=== PATIENT | female | born 1990 | race American Indian/Alaskan Native ===

== ENCOUNTER 2021-05-17 11:31 | Inpatient (IN) | payer OTHER, MEDICAID ==
[2021-05-17] MEDS ORDERED: METOCLOPRAMIDE 10 MG/2 ML INJ IV ONE (13:26)
[2021-05-17] MEDS ORDERED: MORPHINE 4 MG/1 ML INJ IV ONE (13:26)
[2021-05-17] MEDS ORDERED: SODIUM CHLORIDE 0.9% 1000 ML 1,000 ML IV ONE (13:26)
[2021-05-17] MEDS ORDERED: diphenhydrAMINE 50 MG/ML VIAL IV ONE (13:26)
[2021-05-17] MEDS ORDERED: FAMOTIDINE 20 MG/2 ML INJ IV ONE (13:26)
--- NOTE | 2021-05-17 13:32 | Emergency Department Report ---
ED General Adult HPI - General Chief complaint: Abdominal Pain Stated complaint: ABDOMINAL PAIN Time Seen by Provider: 05/17/21 13:04 Source: patient Mode of arrival: Ambulatory Limitations: No Limitations - History of Present Illness Initial comments: 30-year-old -[place] female patient presents with complaints of nausea, vomiting, and abdominal pain x5 days. Patient states her nausea and vomiting worsens after eating. She denies any hematemesis/coffee-ground emesis, fever/chills/sweats, chest pain, shortness of breath, cough, melena/manuela tochezia, or diarrhea. No prior history of abdominal surgeries. No known drug allergies per patient. She rates her current pain as a 10/10 in severity. Last menstrual cycle was 05/01/2021. She also denies any hematuria/urinary frequency, vaginal discharge, dysuria, dyspareunia, or vaginal bleeding. - Related Data Allergies Allergy/AdvReac Type Severity Reaction Status Date / Time No Known Allergies Allergy Verified 05/17/21 12:44 ED Review of Systems ROS: Stated complaint: ABDOMINAL PAIN Other details as noted in HPI Constitutional: denies: chills, fever, malaise Respiratory: denies: cough, shortness of breath Cardiovascular: denies: chest pain Gastrointestinal: abdominal pain, nausea, vomiting. denies: diarrhea, constipation, hematemesis, melena, hematochezia Genitourinary: denies: urgency, dysuria, frequency, hematuria, discharge, abnormal menses, dyspareunia Skin: denies: change in color Neurological: denies: headache Hematological/Lymphatic: denies: swollen glands ED Past Medical Hx - Past Medical History Previous Medical History?: No ED Physical Exam - General Limitations: No Limitations General appearance: alert, in no apparent distress - Head Head exam: Present: atraumatic, normocephalic - Eye Eye exam: Present: normal appearance. Absent: scleral icterus - Respiratory Respiratory exam: Present: normal lung sounds bilaterally. Absent: respiratory distress - Cardiovascular Cardiovascular Exam: Present: regular rate, normal rhythm - GI/Abdominal GI/Abdominal exam: Present: soft, tenderness (Periumbilical, epigastric, and right upper quadrant), normal bowel sounds. Absent: distended, guarding, rebound, rigid - Neurological Exam Neurological exam: Present: alert, oriented X3, normal gait - Psychiatric Psychiatric exam: Present: normal affect, normal mood - Skin Skin exam: Present: warm, dry, intact, normal color. Absent: rash ED Course Vital Signs 05/17/21 05/17/21 12:43 13:04 Temperature 98.4 F Pulse Rate 66 Respiratory 16 14 Rate Blood Pressure 117/65 O2 Sat by Pulse 100 Oximetry ED Medical Decision Making - Lab Data Result diagrams: 05/17/21 15:09 05/17/21 15:09 Lab Results 05/17/21 05/17/21 05/17/21 Range/Units 15:09 15:09 15:09 WBC 6.4 (4.5-11.0) K/mm3 RBC 4.87 (3.65-5.03) M/mm3 Hgb 10.6 (10.1-14.3) gm/dl Hct 34.8 (30.3-42.9) % MCV 72 L (79-97) fl MCH 22 L (28-32) pg MCHC 30 (30-34) % RDW 17.2 H (13.2-15.2) % Plt Count 289 (140-440) K/mm3 Lymph % (Auto) 22.2 (13.4-35.0) % [place] % (Auto) 6.5 (0.0-7.3) % Eos % (Auto) 0.3 (0.0-4.3) % Baso % (Auto) 0.5 (0.0-1.8) % Lymph # (Auto) 1.4 (1.2-5.4) K/mm3 [place] # (Auto) 0.4 (0.0-0.8) K/mm3 Eos # (Auto) 0.0 (0.0-0.4) K/mm3 Baso # (Auto) 0.0 (0.0-0.1) K/mm3 Seg Neutrophils % 70.5 H (40.0-70.0) % Seg Neutrophils # 4.5 (1.8-7.7) K/mm3 Sodium 139 (137-145) mmol/L Potassium 3.9 (3.6-5.0) mmol/L Chloride 104.3 (98-107) mmol/L Carbon Dioxide 22 (22-30) mmol/L Anion Gap 17 mmol/L BUN 7 (7-17) mg/dL Creatinine 0.6 (0.6-1.2) mg/dL Estimated GFR > 60 ml/min BUN/Creatinine Ratio 12 % Glucose 95 (65-100) mg/dL Calcium 8.9 (8.4-10.2) mg/dL Total Bilirubin 1.90 H (0.1-1.2) mg/dL AST 77 H (5-40) units/L ALT 129 H (7-56) units/L Alkaline Phosphatase 172 H (35-129) units/L Total Protein 7.1 (6.3-8.2) g/dL Albumin 4.1 (3.9-5) g/dL Albumin/Globulin Ratio 1.4 % Lipase 554 H (13-60) units/L HCG, Qual Negative (Negative) Urine Color (Yellow) Urine Turbidity (Clear) Urine pH (5.0-7.0) Ur Specific [place] (1.003-1.030) Urine Protein (Negative) mg/dL Urine Glucose (UA) (Negative) mg/dL Urine Ketones (Negative) mg/dL Urine Blood (Negative) Urine Nitrite (Negative) Urine Bilirubin (Negative) Urine Urobilinogen (<2.0) mg/dL Ur Leukocyte Esterase (Negative) Urine WBC (Auto) (0.0-6.0) /HPF Urine RBC (Auto) (0.0-6.0) /HPF U Epithel Cells (Auto) (0-13.0) /HPF Urine Bacteria (Auto) (Negative) /HPF Urine Mucus /HPF 05/17/21 Range/Units Unknown WBC (4.5-11.0) K/mm3 RBC (3.65-5.03) M/mm3 Hgb (10.1-14.3) gm/dl Hct (30.3-42.9) % MCV (79-97) fl MCH (28-32) pg MCHC (30-34) % RDW (13.2-15.2) % Plt Count (140-440) K/mm3 Lymph % (Auto) (13.4-35.0) % [place]ama % (Auto) (0.0-7.3) % Eos % (Auto) (0.0-4.3) % Baso % (Auto) (0.0-1.8) % Lymph # (Auto) (1.2-5.4) K/mm3 [place]ama # (Auto) (0.0-0.8) K/mm3 Eos # (Auto) (0.0-0.4) K/mm3 Baso # (Auto) (0.0-0.1) K/mm3 Seg Neutrophils % (40.0-70.0) % Seg Neutrophils # (1.8-7.7) K/mm3 Sodium (137-145) mmol/L Potassium (3.6-5.0) mmol/L Chloride (98-107) mmol/L Carbon Dioxide (22-30) mmol/L Anion Gap mmol/L BUN (7-17) mg/dL Creatinine (0.6-1.2) mg/dL Estimated GFR ml/min BUN/Creatinine Ratio % Glucose (65-100) mg/dL Calcium (8.4-10.2) mg/dL Total Bilirubin (0.1-1.2) mg/dL AST (5-40) units/L ALT (7-56) units/L Alkaline Phosphatase (35-129) units/L Total Protein (6.3-8.2) g/dL Albumin (3.9-5) g/dL Albumin/Globulin Ratio % Lipase (13-60) units/L HCG, Qual (Negative) Urine Color Mandi (Yellow) Urine Turbidity Slightly-cloudy (Clear) Urine pH 5.0 (5.0-7.0) Ur Specific [place] 1.017 (1.003-1.030) Urine Protein <15 mg/dl (Negative) mg/dL Urine Glucose (UA) Neg (Negative) mg/dL Urine Ketones 20 (Negative) mg/dL Urine Blood Neg (Negative) Urine Nitrite Neg (Negative) Urine Bilirubin Neg (Negative) Urine Urobilinogen 4.0 (<2.0) mg/dL Ur Leukocyte Esterase Neg (Negative) Urine WBC (Auto) 1.0 (0.0-6.0) /HPF Urine RBC (Auto) 1.0 (0.0-6.0) /HPF U Epithel Cells (Auto) < 1.0 (0-13.0) /HPF Urine Bacteria (Auto) 1+ (Negative) /HPF Urine Mucus Few /HPF - Radiology Data Radiology results: report reviewed ULTRASOUND ABDOMEN, COMPLETE INDICATION / CLINICAL INFORMATION: pain. COMPARISON: None available. FINDINGS: PANCREAS: No significant abnormality. ABDOMINAL AORTA: No significant abnormality. IVC: No significant abnormality. LIVER: No significant abnormality. GALLBLADDER: Cholelithiasis. BILE DUCTS: No significant abnormality. Common bile duct measures 3 mm. KIDNEYS: Right: No significant abnormality. Left: No significant abnormality. SPLEEN: No significant abnormality. FREE FLUID: None. ADDITIONAL FINDINGS: None. IMPRESSION: 1. Cholelithiasis without evidence of cholecystitis. CT ABDOMEN AND PELVIS WITH IV CONTRAST INDICATION: pain, elevated lipase and liver enzymes. COMPARISON: None available. TECHNIQUE: All CT scans at this facility use dose modulation, automated exposure control, iterative reconstruction or weight based dosing, when appropriate, to reduce radiation dose to as low as reasonably achievable. FINDINGS: Lung Bases: No significant abnormality. Skeletal System: No acute abnormality. ABDOMEN: Liver: No significant abnormality. Gallbladder: Cholelithiasis. Bile Ducts: While there is no biliary dilatation, there appears to be a punctate stone in the common duct (axial image 68, coronal image 44). Adrenals: No significant abnormality. Right Kidney: No significant abnormality. Left Kidney: No significant abnormality. Pancreas: No significant abnormality. Spleen: No significant abnormality. Upper GI tract: No significant abnormality. Lymph Nodes: No significant adenopathy. Aorta: No significant abnormality. Additional Findings: There is mild stranding in the suprapubic anterior lower abdominal wall which may be related to prior surgery. PELVIS: Colon: No acute abnormality. Urinary Bladder and Distal Ureters: No significant abnormality. Appendix: No significant abnormality. Lymph Nodes: No significant adenopathy. Additional Findings: Uterus is somewhat enlarged and lobulated suggestive of multiple uterine fibroids. There is trace free fluid in the pelvis which may be due to ruptured right ovarian cyst. IMPRESSION: 1. There appears to be a punctate stone in the common duct. Cholelithiasis is noted. There is no common duct or intrahepatic bile duct dilatation and I do not see CT evidence of pancreatitis or cholecystitis. 2. Incidental findings, as above. - Medical Decision Making 30-year-old -[place] female patient presents with complaints of nausea, vomiting, and abdominal pain x5 days. Patient states her nausea and vomiting worsens after eating. She denies any hematemesis/coffee-ground emesis, fever/chills/sweats, chest pain, shortness of breath, cough, melena/hematochezia, or diarrhea. No prior history of abdominal surgeries. No known drug allergies per patient. She rates her current pain as a 10/10 in severity. Last menstrual cycle was 05/01/2021. She also denies any hematuria/urinary frequency, vaginal discharge, dysuria, dyspareunia, or vaginal bleeding. White count is normal CBC. LFTs and lipase elevated. Right upper quadrant ultrasound shows cholelithiasis without cholecystitis. CT abdomen shows common bile duct stone without inflammation of the gallbladder or pancreatitis. Discussed patient with Dr. Miller, [facility] who recommends admission to the hospital for observation. Discussed patient with Dr. Shi who will admit to hospital medicine. Discussed findings and care plan with patient who is agreeable Critical care attestation.: If time is entered above; I have spent that time in minutes in the direct care of this critically ill patient, excluding procedure time. ED Disposition Clinical Impression: Choledocholithiasis, Elevated lipase, Abnormal LFTs, Vomiting Disposition: 09 ADMITTED INPATIENT Is pt being admited?: No Condition: Stable Instructions: Abdominal Pain (ED) Referrals: THALIA BROWN MD [Primary Care Provider] - 3-5 Days
[2021-05-17 13:35] LABS: Bacteria,Urine 1+ /HPF (Negative); Bilirubin,Urine NEG (Negative); Blood,Urine NEG (Negative); Color,Urine Amber (Yellow); Mucus,Urine FEW /HPF; Protein,Urine <15 mg/dL mg/dL (Negative)
[2021-05-17 15:28] LABS: Basophils % (Auto) 0.5 % (0.0-1.8); Eosinophils % (Auto) 0.3 % (0.0-4.3); Hemoglobin 10.6 gm/dl (10.1-14.3); Lymphocytes # (Auto) 1.4 K/mm3 (1.2-5.4); Lymphocytes % (Auto) 22.2 % (13.4-35.0); Monocytes # (Auto) 0.4 K/mm3 (0.0-0.8); Monocytes % (Auto) 6.5 % (0.0-7.3)
--- NOTE | 2021-05-17 15:35 | Ultrasound Report ---
ULTRASOUND ABDOMEN, COMPLETE INDICATION / CLINICAL INFORMATION: pain. COMPARISON: None available. FINDINGS: PANCREAS: No significant abnormality. ABDOMINAL AORTA: No significant abnormality. IVC: No significant abnormality. LIVER: No significant abnormality. GALLBLADDER: Cholelithiasis. BILE DUCTS: No significant abnormality. Common bile duct measures 3 mm. KIDNEYS: Right: No significant abnormality. Left: No significant abnormality. SPLEEN: No significant abnormality. FREE FLUID: None. ADDITIONAL FINDINGS: None. IMPRESSION: 1. Cholelithiasis without evidence of cholecystitis. Signer Name: Scotty Browning DO Signed: 05/17/2021 3:30 PM Workstation Name: [id number]
[2021-05-17 15:37] LABS: Hematocrit 34.8 % (30.3-42.9); Mean Corpuscular HGB Conc 30 % (30-34); Mean Corpuscular Volume 72 fl (79-97); Platelet Count 289 K/mm3 (140-440); Red Blood Count 4.87 M/mm3 (3.65-5.03); Red Cell Distribution Width 17.2 % (13.2-15.2)
[2021-05-17 15:51] LABS: Alanine Aminotransferase 129 units/L (7-56); Albumin 4.1 g/dL (3.9-5); Blood Urea Nitrogen 7 mg/dL (7-17); Calcium 8.9 mg/dL (8.4-10.2); Hemolysis Index 1
[2021-05-17 15:52] LABS: BUN/Creatinine Ratio 12
[2021-05-17] MEDS ORDERED: KETOROLAC 30 MG/1 ML INJ IV ONE (16:21)
--- NOTE | 2021-05-17 17:55 | Cat Scan Report ---
CT ABDOMEN AND PELVIS WITH IV CONTRAST INDICATION: pain, elevated lipase and liver enzymes. COMPARISON: None available. TECHNIQUE: All CT scans at this facility use dose modulation, automated exposure control, iterative reconstructi on or weight based dosing, when appropriate, to reduce radiation dose to as low as reasonably achieva ble. FINDINGS: Lung Bases: No significant abnormality. Skeletal System: No acute abnormality. ABDOMEN: Liver: No significant abnormality. Gallbladder: Cholelithiasis. Bile Ducts: While there is no biliary dilatation, there appears to be a punctate stone in the common duct (axial image 68, coronal image 44). Adrenals: No significant abnormality. Right Kidney: No significant abnormality. Left Kidney: No significant abnormality. Pancreas: No significant abnormality. Spleen: No significant abnormality. Upper GI tract: No significant abnormality. Lymph Nodes: No significant adenopathy. Aorta: No significant abnormality. Additional Findings: There is mild stranding in the suprapubic anterior lower abdominal wall which ma y be related to prior surgery. PELVIS: Colon: No acute abnormality. Urinary Bladder and Distal Ureters: No significant abnormality. Appendix: No significant abnormality. Lymph Nodes: No significant adenopathy. Additional Findings: Uterus is somewhat enlarged and lobulated suggestive of multiple uterine fibroid s. There is trace free fluid in the pelvis which may be due to ruptured right ovarian cyst. IMPRESSION: 1. There appears to be a punctate stone in the common duct. Cholelithiasis is noted. There is no com mon duct or intrahepatic bile duct dilatation and I do not see CT evidence of pancreatitis or cholecy stitis. 2. Incidental findings, as above. Signer Name: León Barnes MD Signed: 05/17/2021 5:51 PM Workstation Name: [id number]
[2021-05-17] MEDS ORDERED: MORPHINE 4 MG/1 ML INJ IV PRN (18:58)
[2021-05-17] MEDS ORDERED: ONDANSETRON 4 MG/2 ML INJ IV PRN (18:59)
--- NOTE | 2021-05-17 19:12 | History and Physical Report ---
History of Present Illness Date of examination: 05/17/21 Date of admission: 05/17/2021 Chief complaint: Abdominal pain associated with nausea and vomiting for 5 days History of present illness: 30-year-old -[place] female with no significant past medical history comes in for nausea vomiting and right upper quadrant pain for 5 days. Nausea worsens after eating. Denies any hematemesis or diarrhea. No chest pain. No shortness of breath. Pain is about 10 on a scale of 1-10. Intermittent in nature. No fever or chills. No exposure to Covid virus. Review of Systems ROS: Stated complaint: ABDOMINAL PAIN Other details as noted in HPI Constitutional: denies: chills, fever, malaise Respiratory: denies: cough, shortness of breath Cardiovascular: denies: chest pain Gastrointestinal: abdominal pain, nausea, vomiting. denies: diarrhea, constipation, hematemesis, melena, hematochezia Genitourinary: denies: urgency, dysuria, frequency, hematuria, discharge, abnormal menses, dyspareunia Skin: denies: change in color Neurological: denies: headache Hematological/Lymphatic: denies: swollen glands Past History Past Medical History: No medical history Past Surgical History: No surgical history Social history: lives with family, full code Family history: no significant family history Medications and Allergies Allergies Allergy/AdvReac Type Severity Reaction Status Date / Time No Known Allergies Allergy Verified 05/17/21 12:44 Home Medications Medication Instructions Recorded Confirmed Last Taken Type No Known Home Medications [No 05/17/21 05/17/21 Unknown History Reported Home Medications] Active Meds: Active Medications Morphine Sulfate (Morphine 4 Mg/1 Ml Inj) 4 mg IV Q4H PRN PRN Reason: Pain , Severe (7-10) Ondansetron HCl (Ondansetron 4 Mg/2 Ml Inj) 4 mg IV Q6H PRN PRN Reason: Nausea Exam - Constitutional Vitals: Temp Pulse Resp BP Pulse Ox 98.4 F 66 16 116/75 99 05/17/21 19:10 05/17/21 19:10 05/17/21 19:10 05/17/21 19:10 05/17/21 19:11 General appearance: Present: no acute distress, well-nourished - EENT Eyes: Present: PERRL ENT: hearing intact, clear oral mucosa - Neck Neck: Present: supple, normal ROM - Respiratory Respiratory effort: normal Respiratory: bilateral: CTA - Cardiovascular Heart rate: 78 Rhythm: regular Heart Sounds: Present: S1 & S2. Absent: rub, click - Extremities Extremities: pulses symmetrical, No edema Peripheral Pulses: within normal limits - Abdominal General gastrointestinal: Present: soft, tender, non-distended, normal bowel sounds Localized gastrointestinal: tender: RLQ, guarding: RLQ Female genitourinary: Present: normal - Integumentary Integumentary: Present: clear, warm, dry - Musculoskeletal Musculoskeletal: gait normal, strength equal bilaterally - Psychiatric Psychiatric: appropriate mood/affect, intact judgment & insight - Neurologic Neurologic: CNII-XII intact, moves all extremities - Allied Health Allied health notes reviewed: nursing, case management Results - Labs CBC & Chem 7: 05/18/21 03:37 05/18/21 03:37 Labs: Laboratory Last Values WBC 6.4 K/mm3 (4.5-11.0) 05/17/21 15:09 RBC 4.87 M/mm3 (3.65-5.03) 05/17/21 15:09 Hgb 10.6 gm/dl (10.1-14.3) 05/17/21 15:09 Hct 34.8 % (30.3-42.9) 05/17/21 15:09 MCV 72 fl (79-97) L 05/17/21 15:09 MCH 22 pg (28-32) L 05/17/21 15:09 MCHC 30 % (30-34) 05/17/21 15:09 RDW 17.2 % (13.2-15.2) H 05/17/21 15:09 Plt Count 289 K/mm3 (140-440) 05/17/21 15:09 Lymph % (Auto) 22.2 % (13.4-35.0) 05/17/21 15:09 [place] % (Auto) 6.5 % (0.0-7.3) 05/17/21 15:09 Eos % (Auto) 0.3 % (0.0-4.3) 05/17/21 15:09 Baso % (Auto) 0.5 % (0.0-1.8) 05/17/21 15:09 Lymph # (Auto) 1.4 K/mm3 (1.2-5.4) 05/17/21 15:09 [place] # (Auto) 0.4 K/mm3 (0.0-0.8) 05/17/21 15:09 Eos # (Auto) 0.0 K/mm3 (0.0-0.4) 05/17/21 15:09 Baso # (Auto) 0.0 K/mm3 (0.0-0.1) 05/17/21 15:09 Seg Neutrophils % 70.5 % (40.0-70.0) H 05/17/21 15:09 Seg Neutrophils # 4.5 K/mm3 (1.8-7.7) 05/17/21 15:09 Sodium 139 mmol/L (137-145) 05/17/21 15:09 Potassium 3.9 mmol/L (3.6-5.0) 05/17/21 15:09 Chloride 104.3 mmol/L (98-107) 05/17/21 15:09 Carbon Dioxide 22 mmol/L (22-30) 05/17/21 15:09 Anion Gap 17 mmol/L 05/17/21 15:09 BUN 7 mg/dL (7-17) 05/17/21 15:09 Creatinine 0.6 mg/dL (0.6-1.2) 05/17/21 15:09 Estimated GFR > 60 ml/min 05/17/21 15:09 BUN/Creatinine Ratio 12 % 05/17/21 15:09 Glucose 95 mg/dL (65-100) 05/17/21 15:09 Calcium 8.9 mg/dL (8.4-10.2) 05/17/21 15:09 Total Bilirubin 1.90 mg/dL (0.1-1.2) H 05/17/21 15:09 AST 77 units/L (5-40) H 05/17/21 15:09 ALT 129 units/L (7-56) H 05/17/21 15:09 Alkaline Phosphatase 172 units/L (35-129) H 05/17/21 15:09 Total Protein 7.1 g/dL (6.3-8.2) 05/17/21 15:09 Albumin 4.1 g/dL (3.9-5) 05/17/21 15:09 Albumin/Globulin Ratio 1.4 % 05/17/21 15:09 Lipase 554 units/L (13-60) H 05/17/21 15:09 HCG, Qual Negative (Negative) 05/17/21 15:09 Urine Color Mandi (Yellow) 05/17/21 Unknown Urine Turbidity Slightly-cloudy (Clear) 05/17/21 Unknown Urine pH 5.0 (5.0-7.0) 05/17/21 Unknown Ur Specific [place] 1.017 (1.003-1.030) 05/17/21 Unknown Urine Protein <15 mg/dl mg/dL (Negative) 05/17/21 Unknown Urine Glucose (UA) Neg mg/dL (Negative) 05/17/21 Unknown Urine Ketones 20 mg/dL (Negative) 05/17/21 Unknown Urine Blood Neg (Negative) 05/17/21 Unknown Urine Nitrite Neg (Negative) 05/17/21 Unknown Urine Bilirubin Neg (Negative) 05/17/21 Unknown Urine Urobilinogen 4.0 mg/dL (<2.0) 05/17/21 Unknown Ur Leukocyte Esterase Neg (Negative) 05/17/21 Unknown Urine WBC (Auto) 1.0 /HPF (0.0-6.0) 05/17/21 Unknown Urine RBC (Auto) 1.0 /HPF (0.0-6.0) 05/17/21 Unknown U Epithel Cells (Auto) < 1.0 /HPF (0-13.0) 05/17/21 Unknown Urine Bacteria (Auto) 1+ /HPF (Negative) 05/17/21 Unknown Urine Mucus Few /HPF 05/17/21 Unknown Short CBC 05/17/21 05/18/21 Range/Units 15:09 03:37 WBC 6.4 5.9 (4.5-11.0) K/mm3 Hgb 10.6 10.6 (10.1-14.3) gm/dl Hct 34.8 34.7 (30.3-42.9) % Plt Count 289 303 (140-440) K/mm3 BMP 05/17/21 05/18/21 15:09 03:37 Sodium 139 141 Potassium 3.9 3.7 Chloride 104.3 105.5 Carbon Dioxide 22 19 L BUN 7 9 Creatinine 0.6 0.7 Glucose 95 86 Calcium 8.9 9.2 Liver Function 05/17/21 05/18/21 Range/Units 15:09 03:37 Total Bilirubin 1.90 H 2.20 H (0.1-1.2) mg/dL AST 77 H 75 H (5-40) units/L ALT 129 H 122 H (7-56) units/L Alkaline Phosphatase 172 H 195 H (35-129) units/L Albumin 4.1 4.1 (3.9-5) g/dL Urine 05/17/21 Range/Units Unknown Urine Color Mandi (Yellow) Urine pH 5.0 (5.0-7.0) Ur Specific [place] 1.017 (1.003-1.030) Urine Protein <15 mg/dl (Negative) mg/dL Urine Glucose (UA) Neg (Negative) mg/dL - Imaging and Cardiology Imaging and Cardiology: Abdominal ultrasound Cholelithiasis without evidence of cholecystitis Abdomen/pelvis CT There appears to be a punctate stone in the common bile duct. Cholelithiasis is noted. There is no common duct or intrahepatic bile duct dilatation and no evidence of pancreatitis or cholecystitis. Incidental findings as above. Assessment and Plan Advance Directives: Yes (Full code) VTE prophylaxis?: Chemical, Mechanical Plan of care discussed with patient/family: Yes - Patient Problems (1) Choledocholithiasis Current Visit: Yes Status: Acute Plan to address problem: Elevated LFTs and elevated lipase suggests choledocholithiasis and possible common bile duct obstruction Surgery and GI consulted MRCP requested for a.m. Pain control in the meantime IV antibiotics (2) Transaminitis Current Visit: Yes Status: Acute Plan to address problem: Secondary to cholelithiasis and CBD stone (3) Elevated lipase Current Visit: Yes Status: Acute Plan to address problem: No evidence of pancreatitis on the CAT scan Keep patient n.p.o. (4) DVT prophylaxis Current Visit: Yes Status: Acute Plan to address problem: On SCDs and GI prophylaxis (5) Advance care planning Current Visit: Yes Status: Acute Plan to address problem: Disease education conducted, care plan discussed, diagnosis disc, prognosis discussed. Patient is full code. Patient acknowledged understanding and agreement with care plan. +30 minutes.
[2021-05-17] MEDS ORDERED: ACETAMINOPHEN 325 MG TAB PO PRN (19:14)
--- NOTE | 2021-05-17 20:26 | Gastroenterology Consultation ---
History of Present Illness - Reason for Consult Consult date: 05/17/21 cbd stone Requesting physician: KRYSTA BULLOCK - History of Present Illness This is a 30 yo female presenting to the ED for 5 day h/o upper abdominal pain and nausea/vomiting. Denies any fever/chills, bleeding symptom. Reports pain has been on-going since Friday and not improved much. Radiating to the back and her sides. No prior h/o pancreatitis, GI bleed, or abdominal surgeries. No recent alcohol use. Medication list reviewed. Medications and Allergies Allergies Allergy/AdvReac Type Severity Reaction Status Date / Time No Known Allergies Allergy Verified 05/17/21 12:44 Home Medications Medication Instructions Recorded Confirmed Last Taken Type No Known Home Medications [No 05/17/21 05/17/21 Unknown History Reported Home Medications] Active Meds: Active Medications Acetaminophen (Acetaminophen 325 Mg Tab) 650 mg PO Q4H PRN PRN Reason: Pain MILD(1-3)/Fever >100.5/ALMEIDA Famotidine (Famotidine 20 Mg/2 Ml Inj) 20 mg IV BID MOHSEN Hydromorphone HCl (Hydromorphone 1 Mg/1 Ml Inj) 0.5 mg IV Q3H PRN PRN Reason: Pain , Severe (7-10) Dextrose/Sodium Chloride (D5ns) 1,000 mls @ 75 mls/hr IV DIRECT MOHSEN Piperacillin Sod/Tazobactam Sod (Zosyn/Ns 4.5gm/100ml) 4.5 gm in 100 mls @ 200 mls/hr IV Q8H MOHSEN; Protocol Metoclopramide HCl (Metoclopramide 10 Mg/2 Ml Inj) 10 mg IV Q6H PRN PRN Reason: Nausea And Vomiting Morphine Sulfate (Morphine 2 Mg/1 Ml Inj) 2 mg IV Q4H PRN PRN Reason: Pain, Moderate (4-6) Ondansetron HCl (Ondansetron 4 Mg/2 Ml Inj) 4 mg IV Q3H PRN PRN Reason: Nausea And Vomiting Sodium Chloride (Sodium Chloride 0.9% 10 Ml Flush Syringe) 10 ml IV BID MOHSEN Sodium Chloride (Sodium Chloride 0.9% 10 Ml Flush Syringe) 10 ml IV PRN PRN PRN Reason: LINE FLUSH Review of Systems - Review of Systems All systems: negative Constitutional: no weight loss, no weight gain, no fever Eyes: no change in vision Ears, Nose, Throat: no decreased hearing, no difficulty swallowing Cardiovascular: no chest pain, no edema Gastrointestinal: abdominal pain, nausea, vomiting, no diarrhea, no constipation, no change in bowel habits, no BRBPR, no melena, no hematochezia Rectal: no pain Musculoskeletal: no gait dysfunction Integumentary: no rash Neurological: no paralysis, no weakness Psychiatric: no anxiety Endocrine: no cold intolerance Hematologic/Lymphatic: no easy bruising Allergic/Immunologic: no wheezing Exam - Constitutional Vital Signs: Temp Pulse Resp BP Pulse Ox 98.4 F 66 16 116/75 99 05/17/21 19:10 05/17/21 19:10 05/17/21 19:10 05/17/21 19:10 05/17/21 19:11 General appearance: no acute distress - EENT Eyes: EOM intact ENT: hearing intact - Neck Neck: supple - Respiratory Respiratory effort: normal - Cardiovascular Rhythm: regular Heart Sounds: Present: S1 & S2 Extremities: No edema - Gastrointestinal General gastrointestinal: Present: soft, tender, non-distended, normal bowel sounds - Integumentary Integumentary: Present: clear, warm - Musculoskeletal Musculoskeletal: normal - Neurologic Neurological: alert and oriented x3 - Psychiatric Psychiatric: appropriate mood/affect - Labs CBC & Chem 7: 05/17/21 15:09 05/17/21 15:09 Lab Results: Laboratory Results - last 24 hr 05/17/21 05/17/21 05/17/21 15:09 15:09 15:09 WBC 6.4 RBC 4.87 Hgb 10.6 Hct 34.8 MCV 72 L MCH 22 L MCHC 30 RDW 17.2 H Plt Count 289 Lymph % (Auto) 22.2 [place] % (Auto) 6.5 Eos % (Auto) 0.3 Baso % (Auto) 0.5 Lymph # (Auto) 1.4 [place] # (Auto) 0.4 Eos # (Auto) 0.0 Baso # (Auto) 0.0 Seg Neutrophils % 70.5 H Seg Neutrophils # 4.5 Sodium 139 Potassium 3.9 Chloride 104.3 Carbon Dioxide 22 Anion Gap 17 BUN 7 Creatinine 0.6 Estimated GFR > 60 BUN/Creatinine Ratio 12 Glucose 95 Calcium 8.9 Total Bilirubin 1.90 H AST 77 H ALT 129 H Alkaline Phosphatase 172 H Total Protein 7.1 Albumin 4.1 Albumin/Globulin Ratio 1.4 Lipase 554 H HCG, Qual Negative Urine Color Urine Turbidity Urine pH Ur Specific [place] Urine Protein Urine Glucose (UA) Urine Ketones Urine Blood Urine Nitrite Urine Bilirubin Urine Urobilinogen Ur Leukocyte Esterase Urine WBC (Auto) Urine RBC (Auto) U Epithel Cells (Auto) Urine Bacteria (Auto) Urine Mucus 05/17/21 Unknown WBC RBC Hgb Hct MCV MCH MCHC RDW Plt Count Lymph % (Auto) [place] % (Auto) Eos % (Auto) Baso % (Auto) Lymph # (Auto) [place] # (Auto) Eos # (Auto) Baso # (Auto) Seg Neutrophils % Seg Neutrophils # Sodium Potassium Chloride Carbon Dioxide Anion Gap BUN Creatinine Estimated GFR BUN/Creatinine Ratio Glucose Calcium Total Bilirubin AST ALT Alkaline Phosphatase Total Protein Albumin Albumin/Globulin Ratio Lipase HCG, Qual Urine Color Mandi Urine Turbidity Slightly-cloudy Urine pH 5.0 Ur Specific [place] 1.017 Urine Protein <15 mg/dl Urine Glucose (UA) Neg Urine Ketones 20 Urine Blood Neg Urine Nitrite Neg Urine Bilirubin Neg Urine Urobilinogen 4.0 Ur Leukocyte Esterase Neg Urine WBC (Auto) 1.0 Urine RBC (Auto) 1.0 U Epithel Cells (Auto) < 1.0 Urine Bacteria (Auto) 1+ Urine Mucus Few - Imaging CT Scan: report reviewed Ultrasound: report reviewed Assessment and Plan # Abdominal pain/nausea/vomiting # Elevated LFTs - CT showing suspected stone in the common bile duct although no biliary ductal dilation. No signs of pancreatitis. - although CT is negative for pancreatitis, she fits other criteria with elevated lipase and pain. Rec - monitor LFTs - check INR - MRCP pending - will decide on ERCP based on MRCP results. - recommend surgery consult for CCY evaluation. - keep NPO - IVF. - pain control. - Patient Problems (1) Abnormal LFTs Current Visit: Yes Status: Acute (2) Choledocholithiasis Current Visit: Yes Status: Acute (3) Elevated lipase Current Visit: Yes Status: Acute
[2021-05-17] MEDS: FAMOTIDINE 20 MG/2 ML INJ IV SCH (21:36)
[2021-05-17] MEDS: PIPERACIL/TAZOBACTA 4.5/NS 100 4.5 GM/100 ML VIAL IV SCH (21:37)
[2021-05-18] MEDS: MORPHINE 2 MG/1 ML INJ IV PRN ×2 (02:47→10:17)
[2021-05-18] MEDS: D5W/0.9% NACL 1,000 ML IV SCH ×2 (03:01→22:47)
[2021-05-18 04:30] LABS: Basophils % (Auto) 0.6 % (0.0-1.8); Eosinophils % (Auto) 0.5 % (0.0-4.3); Hematocrit 34.7 % (30.3-42.9); Hemoglobin 10.6 gm/dl (10.1-14.3); Lymphocytes # (Auto) 1.8 K/mm3 (1.2-5.4); Mean Corpuscular HGB Conc 31 % (30-34); Mean Corpuscular Volume 71 fl (79-97); Monocytes # (Auto) 0.4 K/mm3 (0.0-0.8); Monocytes % (Auto) 6.5 % (0.0-7.3); Platelet Count 303 K/mm3 (140-440); Red Blood Count 4.88 M/mm3 (3.65-5.03); Red Cell Distribution Width 17.6 % (13.2-15.2)
[2021-05-18 04:37] LABS: Alanine Aminotransferase 122 units/L (7-56); Albumin 4.1 g/dL (3.9-5); Blood Urea Nitrogen 9 mg/dL (7-17); Calcium 9.2 mg/dL (8.4-10.2); Hemolysis Index 0
[2021-05-18 04:39] LABS: BUN/Creatinine Ratio 13
[2021-05-18] MEDS: PIPERACIL/TAZOBACTA 4.5/NS 100 4.5 GM/100 ML VIAL IV SCH (05:43)
--- NOTE | 2021-05-18 08:57 | Progress Note ---
Assessment and Plan Assessment and plan: 30-year-old female patient with no significant past medical history was admitted with acute nausea vomiting initial work-up is consistent with choledocholithiasis and mild acute pancreatitis, acute transaminitis, GI evaluated the patient, pending MRCP --Choledocholithiasis Current Visit: Yes Status: Acute Plan to address problem: Elevated LFTs and elevated lipase suggests choledocholithiasis and possible co mmon bile duct obstruction GI evaluation noted and appreciated Pending MRCP this a.m. Pain management, n.p.o. status IV antibiotics Abdominal ultrasound :cholelithiasis without evidence of cholecystitis CT abdomen and pelvis; punctate stone in the common bile duct, cholelithiasis there is no common duct or intrahepatic bile duct dilatation do not see CT evidence of pancreatitis or cholecystitis --Acute transaminitis Current Visit: Yes Status: Acute Secondary to cholelithiasis and CBD stone Closely monitor, GI following LFTs trending down, follow hours --Elevated lipase/acute pancreatitis Current Visit: Yes Status: Acute No evidence of pancreatitis on the CAT scan Keep patient n.p.o. --DVT prophylaxis Current Visit: Yes Status: Acute On SCDs and GI prophylaxis -- Advance care planning Current Visit: Yes Status: Acute Disease education conducted, care plan discussed, diagnosis disc, prognosis discussed. Patient is full code. Patient verbalized understanding and agreement with care plan. +30 minutes. Follow MRCP , and ERCP follow consultants evaluation and recommendations Closely monitor the patient and adjust management as needed Closely monitor patient and adjust management as needed Plan of care reviewed with the patient and her nurse History Interval history: I seen and examined the patient at the bedside Patient's chart and medications reviewed Patient had MRCP done findings reviewed Scheduled for ERCP today Patient has no new complaints Hospitalist Physical - Constitutional Vitals: Temp Pulse Resp BP Pulse Ox 98.2 F 60 18 121/63 95 05/18/21 02:38 05/18/21 02:38 05/18/21 02:38 05/18/21 02:38 05/18/21 07:37 General appearance: Present: no acute distress, well-nourished - EENT Eyes: Present: PERRL, EOM intact - Neck Neck: Present: supple, normal ROM - Respiratory Respiratory effort: normal Respiratory: bilateral: diminished, negative: rales, rhonchi, wheezing - Cardiovascular Rhythm: regular Heart Sounds: Present: S1 & S2 - Extremities Extremities: no ischemia, No edema - Abdominal General gastrointestinal: soft, non-tender, non-distended, normal bowel sounds - Integumentary Integumentary: Present: clear, warm - Psychiatric Psychiatric: appropriate mood/affect, cooperative - Neurologic Neurologic: CNII-XII intact, moves all extremities Results - Labs CBC & Chem 7: 05/18/21 03:37 05/18/21 03:37 Labs: Laboratory Last Values WBC 5.9 K/mm3 (4.5-11.0) 05/18/21 03:37 RBC 4.88 M/mm3 (3.65-5.03) 05/18/21 03:37 Hgb 10.6 gm/dl (10.1-14.3) 05/18/21 03:37 Hct 34.7 % (30.3-42.9) 05/18/21 03:37 MCV 71 fl (79-97) L 05/18/21 03:37 MCH 22 pg (28-32) L 05/18/21 03:37 MCHC 31 % (30-34) 05/18/21 03:37 RDW 17.6 % (13.2-15.2) H 05/18/21 03:37 Plt Count 303 K/mm3 (140-440) 05/18/21 03:37 Lymph % (Auto) 30.0 % (13.4-35.0) 05/18/21 03:37 [place] % (Auto) 6.5 % (0.0-7.3) 05/18/21 03:37 Eos % (Auto) 0.5 % (0.0-4.3) 05/18/21 03:37 Baso % (Auto) 0.6 % (0.0-1.8) 05/18/21 03:37 Lymph # (Auto) 1.8 K/mm3 (1.2-5.4) 05/18/21 03:37 [place] # (Auto) 0.4 K/mm3 (0.0-0.8) 05/18/21 03:37 Eos # (Auto) 0.0 K/mm3 (0.0-0.4) 05/18/21 03:37 Baso # (Auto) 0.0 K/mm3 (0.0-0.1) 05/18/21 03:37 Seg Neutrophils % 62.4 % (40.0-70.0) 05/18/21 03:37 Seg Neutrophils # 3.7 K/mm3 (1.8-7.7) 05/18/21 03:37 Sodium 141 mmol/L (137-145) 05/18/21 03:37 Potassium 3.7 mmol/L (3.6-5.0) 05/18/21 03:37 Chloride 105.5 mmol/L (98-107) 05/18/21 03:37 Carbon Dioxide 19 mmol/L (22-30) L 05/18/21 03:37 Anion Gap 20 mmol/L 05/18/21 03:37 BUN 9 mg/dL (7-17) 05/18/21 03:37 Creatinine 0.7 mg/dL (0.6-1.2) 05/18/21 03:37 Estimated GFR > 60 ml/min 05/18/21 03:37 BUN/Creatinine Ratio 13 % 05/18/21 03:37 Glucose 86 mg/dL (65-100) 05/18/21 03:37 Calcium 9.2 mg/dL (8.4-10.2) 05/18/21 03:37 Total Bilirubin 2.20 mg/dL (0.1-1.2) H 05/18/21 03:37 AST 75 units/L (5-40) H 05/18/21 03:37 ALT 122 units/L (7-56) H 05/18/21 03:37 Alkaline Phosphatase 195 units/L (35-129) H 05/18/21 03:37 Total Protein 7.4 g/dL (6.3-8.2) 05/18/21 03:37 Albumin 4.1 g/dL (3.9-5) 05/18/21 03:37 Albumin/Globulin Ratio 1.2 % 05/18/21 03:37 Lipase 554 units/L (13-60) H 05/17/21 15:09 HCG, Qual Negative (Negative) 05/17/21 15:09 Urine Color Mandi (Yellow) 05/17/21 Unknown Urine Turbidity Slightly-cloudy (Clear) 05/17/21 Unknown Urine pH 5.0 (5.0-7.0) 05/17/21 Unknown Ur Specific [place] 1.017 (1.003-1.030) 05/17/21 Unknown Urine Protein <15 mg/dl mg/dL (Negative) 05/17/21 Unknown Urine Glucose (UA) Neg mg/dL (Negative) 05/17/21 Unknown Urine Ketones 20 mg/dL (Negative) 05/17/21 Unknown Urine Blood Neg (Negative) 05/17/21 Unknown Urine Nitrite Neg (Negative) 05/17/21 Unknown Urine Bilirubin Neg (Negative) 05/17/21 Unknown Urine Urobilinogen 4.0 mg/dL (<2.0) 05/17/21 Unknown Ur Leukocyte Esterase Neg (Negative) 05/17/21 Unknown Urine WBC (Auto) 1.0 /HPF (0.0-6.0) 05/17/21 Unknown Urine RBC (Auto) 1.0 /HPF (0.0-6.0) 05/17/21 Unknown U Epithel Cells (Auto) < 1.0 /HPF (0-13.0) 05/17/21 Unknown Urine Bacteria (Auto) 1+ /HPF (Negative) 05/17/21 Unknown Urine Mucus Few /HPF 05/17/21 Unknown Active Medications - Current Medications Current Medications: Generic Name Dose Route Start Last Admin Trade Name Freq PRN Reason Stop Dose Admin Acetaminophen 650 mg 05/17/21 19:14 Acetaminophen 325 Mg Tab PO Q4H PRN Pain MILD(1-3)/Fever >100.5/ALMEIDA Famotidine 20 mg 05/17/21 22:00 05/17/21 21:36 Famotidine 20 Mg/2 Ml Inj IV 20 mg BID MOHSEN Administration Hydromorphone HCl 0.5 mg 05/17/21 19:14 Hydromorphone 1 Mg/1 Ml Inj IV Q3H PRN Pain , Severe (7-10) Dextrose/Sodium Chloride 1,000 mls @ 75 mls/hr 05/17/21 20:00 05/18/21 03:01 D5ns IV 75 mls/hr DIRECT MOHSEN Administration Piperacillin Sod/Tazobactam Sod 4.5 gm in 100 mls @ 200 mls/hr 05/17/21 22:00 05/18/21 05:43 Zosyn/Ns 4.5gm/100ml IV 200 mls/hr Q8H MOHSEN Administration Protocol Metoclopramide HCl 10 mg 05/17/21 19:14 Metoclopramide 10 Mg/2 Ml Inj IV Q6H PRN Nausea And Vomiting Morphine Sulfate 2 mg 05/17/21 19:14 05/18/21 02:47 Morphine 2 Mg/1 Ml Inj IV 2 mg Q4H PRN Administration Pain, Moderate (4-6) Ondansetron HCl 4 mg 05/17/21 19:14 Ondansetron 4 Mg/2 Ml Inj IV Q3H PRN Nausea And Vomiting Sodium Chloride 10 ml 05/17/21 22:00 05/17/21 21:37 Sodium Chloride 0.9% 10 Ml Flush Syringe IV 10 ml BID MOHSEN Administration Sodium Chloride 10 ml 05/17/21 19:14 Sodium Chloride 0.9% 10 Ml Flush Syringe IV PRN PRN LINE FLUSH
--- NOTE | 2021-05-18 09:37 | Magnetic Resonance Report ---
MR ABDOMEN MRCP HISTORY: Cholelithiasis, choledocholithiasis, abdominal pain TECHNIQUE: Multisequence, multiplane are MRI without contrast. Thin collimation coronal MRCP images. Radial MRCP images. COMPARISON: CT abdomen pelvis with contrast performed 05/17/2021. FINDINGS: The MRCP images demonstrate multiple small and large stones in the gallbladder. Gallstones measure up to 2 cm in diameter. The images also demonstrate a small filling defect in the distal common bile du ct measuring approximately 4 mm consistent with an obstructing stone tone. There is mild intrahepatic and extrahepatic biliary dilatation with the common bile duct measuring up to 9 mm in diameter. The pancreatic duct is unremarkable. MR imaging of the liver, pancreas, spleen, kidneys, adrenal glands, visualized bowel loops and vascul ar structures are unremarkable. No evidence for ascites, fluid collection or acute inflammation. Normal bone marrow signal in the visualized osseous structures. IMPRESSION: Cholelithiasis and obstructing choledocholithiasis as described. Signer Name: Shakeel Fuentes Jr, MD Signed: 05/18/2021 9:33 AM Workstation Name: [id number]
[2021-05-18] MEDS: METOCLOPRAMIDE 10 MG/2 ML INJ IV PRN (10:17)
[2021-05-18] MEDS: FAMOTIDINE 20 MG/2 ML INJ IV SCH ×2 (10:17→22:25)
[2021-05-18] MEDS ORDERED: WATER FOR IRRIG STERILE 250 ML BOTTLE IR ONE (13:20)
[2021-05-18] MEDS ORDERED: GLUCAGON (HUMAN RECOMBINANT) 1 MG/ML INJ ONE (13:20)
[2021-05-18] MEDS ORDERED: SODIUM CHLORIDE 0.9% 1000 ML 1,000 ML ONE (13:20)
[2021-05-18] MEDS ORDERED: WATER FOR IRRIG STERILE 1,000 ML BOTTLE ONE (13:20)
[2021-05-18] MEDS ORDERED: SODIUM CHLORIDE 0.9% 100 ML ONE (13:20)
[2021-05-18] MEDS ORDERED: LIDOCAINE MPF (2%) 20 MG/1 ML VIAL 5 ML ONE (14:11)
[2021-05-18] MEDS ORDERED: propofoL 200 MG/20 ML VIAL IV ONE ×2 (14:12→14:36)
[2021-05-18] MEDS ORDERED: fentaNYL 100 MCG/2 ML INJ ONE (14:12)
[2021-05-18] MEDS ORDERED: MIDAZOLAM 2 MG/2 ML INJ ONE (14:12)
--- NOTE | 2021-05-18 14:21 | Anesthesia Consultation ---
Anesthesia Consult and Med Hx Date of service: 05/18/21 - Airway Anesthetic Teeth Evaluation: Good ROM Head & Neck: Adequate Mental/Hyoid Distance: Adequate Mallampati Class: Class II Intubation Access Assessment: Probably Good - Pulmonary Exam CTA: Yes - Cardiac Exam Cardiac Exam: RRR - Pre-Operative Health Status ASA Pre-Surgery Classification: ASA2 Proposed Anesthetic Plan: MAC - Pulmonary Hx Asthma: No COPD: No Hx Pneumonia: No - Gastrointestinal Hx Gastroesophageal Reflux Disease: Yes (controlled) - Endocrine Hx End Stage Renal Disease: No Hx Liver Disease: Yes (gallstones) - Other Systems Hx Cancer: No - Additional Comments Anesthesia Medical History Comments: no problem with anesthesia in past
--- NOTE | 2021-05-18 14:22 | Anesthesia Day of Surgery ---
Anesthesia Day of Surgery - Day of Surgery Patient Examined: Yes Patient H&P Reviewed: Yes Patient is NPO: Yes
[2021-05-18] MEDS ORDERED: KETAMINE/STERILE WATER 50 MG/ML SYRINGE ONE (14:31)
--- NOTE | 2021-05-18 15:01 | Event Note ---
Date: 05/18/21 Consult noted. Patient admitted for abdominal pain. Work-up revealed cholelithiasis, choledocholithiasis, pancreatitis. CT scan abdomen pelvis, ultrasound abdomen, MRCP reviewed. Vital signs are stable. LFTs and bilirubin are mildly elevated. Patient undergoing ERCP at the time of my visit. Will follow up results and full consult to follow tomorrow. Recommend cholecystectomy prior to discharge. Will discuss with patient tomorrow and likely schedule for Friday if she is agreeable.
[2021-05-18] MEDS ORDERED: ONDANSETRON 4 MG/2 ML INJ ONE (15:02)
--- NOTE | 2021-05-18 15:05 | Post Operative Note ---
Pre-op diagnosis: Choledocholithiasis Post-op diagnosis: other (Dilated CBD, no stones noted) Findings: 1. Normal major papilla. 2. Normal pancreatic duct. 3. CBD dilated to 12 mm, no clear filling defects. Swept x 2 with 12 mm balloon after sphincterotomy, with no stone return. Procedure: ERCP with ES Anesthesia: MAC Surgeon: MERLE SENA Estimated blood loss: none Pathology: none Condition: stable Disposition: floor (Cholecystectomy - timing per Surgery. Observe for complications.)
--- NOTE | 2021-05-18 16:02 | Fluoroscopy Report ---
INTRAOPERATIVE FLUOROSCOPY: ABDOMEN INDICATION: Guidance for ERCP. History of obstructive choledocholithiasis. TECHNIQUE: Intraoperative spot images were obtained during the procedure. FINDINGS: Submitted imaging demonstrates endoscopic access of the biliary tree with mild biliary ductal dilatat ion. Please see the procedural report for further details. Fluoroscopy Time: 1.3 minutes. Fluoroscopy Images: 5. Signer Name: Alan Mendoza MD Signed: 05/18/2021 3:58 PM Workstation Name: [id number]
--- NOTE | 2021-05-18 17:03 | Post Anesthesia Evaluation ---
- Post Anesthesia Evaluation Patient Participated: Yes Airway Patent: Yes Stable Respiratory Function: Yes Nausea/Vomiting: No Temp > 96.8F: Yes Pain Manageable: Yes Adequeate Hydration: Yes Anesthesia Complications: No Block Receding Appropriately: Not Applicable Patient on Ventilator: No
[2021-05-18] MEDS: HYDROmorphone 1 MG/1 ML INJ IV PRN ×2 (17:35→22:30)
[2021-05-18] MEDS: ONDANSETRON 4 MG/2 ML INJ IV PRN ×2 (17:36→22:25)
--- NOTE | 2021-05-18 23:56 | Operative Report ---
DATE OF SURGERY: 05/18/2021 PROCEDURE: Endoscopic retrograde cholangiopancreatography with sphincterotomy. PREOPERATIVE DIAGNOSIS: Choledocholithiasis. POSTOPERATIVE DIAGNOSIS: Dilated common bile duct with no stones. SEDATION: MAC by Anesthesia. HISTORY: The patient is a 30-year-old woman who presents with a 5-day history of upper abdominal pain, nausea and vomiting. She had elevated liver enzymes and an elevated lipase. She had an MRCP, which showed an obstructing stone in the distal common bile duct. Procedure, indications, risks and benefits were explained and consent was obtained. DESCRIPTION OF PROCEDURE: The patient was placed on abdomen on fluoroscopy table and sedated. Video side-viewing scope was passed through the mouth and oropharynx into the descending duodenum and then gradually withdrawn with close inspection of mucosa until the major papilla was visualized. Selective cannulation of the major papilla was achieved using the Fusion sphincterotome. Initially, wire-guided cannulation was performed of the pancreatic duct and a small precut papillotomy was performed, which facilitated entry into the biliary system. Free cannulation of the common bile duct was then achieved. FINDINGS: 1. Normal-appearing major papilla. 2. Pancreatic duct is normal in course and caliber. 3. Common bile duct is dilated to 12 mm. No clear filling defects noted. A 6 mm biliary sphincterotomy completed. Subsequently, duct was swept with a 12 mm balloon with no stones returned x 2. The patient tolerated the procedure well without immediate complication. IMPRESSION: 1. Dilated common bile duct with no filling defects. 2. Normal pancreatic duct. PLAN: 1. Monitor for complications. 2. Elective cholecystectomy as per Surgery. TID: [id number] RECEIPT: [id number] [facility]/MARCELA
[2021-05-19 06:20] LABS: Alanine Aminotransferase 86 units/L (7-56); Albumin 3.5 g/dL (3.9-5); Blood Urea Nitrogen 7 mg/dL (7-17); Calcium 8.5 mg/dL (8.4-10.2); Hemolysis Index 2
[2021-05-19 06:25] LABS: BUN/Creatinine Ratio 10
[2021-05-19] MEDS: FAMOTIDINE 20 MG/2 ML INJ IV SCH ×2 (07:46→21:23)
[2021-05-19] MEDS: METOCLOPRAMIDE 10 MG/2 ML INJ IV PRN (09:00)
--- NOTE | 2021-05-19 09:14 | Progress Note ---
Assessment and Plan Assessment and plan: 30-year-old female patient with no significant past medical history was admitted with acute nausea vomiting initial work-up is consistent with choledocholithiasis and mild acute pancreatitis, acute transaminitis, GI evaluated the patient, patient underwent abdominal ultrasound, CT abdomen and pelvis, MRCP and ERCP findings reviewed, Cholecystectomy scheduled for tomorrow 05/20/21. N.p.o. from midnight Abdominal ultrasound 05/17/2019:cholelithiasis without evidence of cholecystitis CT abdomen and pelvis; 05/17/2021 punctate stone in the common bile duct, cholelithiasis there is no common duct or intrahepatic bile duct dilatation do not see CT evidence of pancreatitis or cholecystitis MRCP; 05/18/2021 Cholelithiasis and obstructing choledocholithiasis. ERCP 05/18/2021; Procedure: ERCP with ES Pre-op diagnosis: Choledocholithiasis Post-op diagnosis: other (Dilated CBD, no stones noted) Findings: 1. Normal major papilla. 2. Normal pancreatic duct. 3. CBD dilated to 12 mm, no clear filling defects. Swept x 2 with 12 mm balloon after sphincterotomy, with no stone return. Started clear liquids this morning --Choledocholithiasis Current Visit: Yes Status: Acute Elevated LFTs and elevated lipase suggests choledocholithiasis and possible common bile duct obstruction GI evaluation noted and appreciated MRCP, ERCP findings noted Cholecystectomy tomorrow --Acute transaminitis Current Visit: Yes Status: Acute Secondary to cholelithiasis and CBD stone Closely monitor, GI following LFTs trending down, --Elevated lipase/acute pancreatitis Current Visit: Yes Status: Acute No evidence of pancreatitis on the CAT scan Keep patient n.p.o. --DVT prophylaxis Current Visit: Yes Status: Acute On SCDs and GI prophylaxis -- Advance care planning Current Visit: Yes Status: Acute Disease education conducted, care plan discussed, diagnosis disc, prognosis discussed. Patient is full code. Patient verbalized understanding and agreement with care plan. +30 minutes. Consults and recommendations noted and appreciated We will closely monitor patient and adjust management as needed 05/18/2021; MRCP, ERCP findings reviewed, Pending cholecystectomy per surgeon 05/19/2021; cholecystectomy scheduled for tomorrow, n.p.o. from midnight History Interval history: I seen and examined the patient at the bedside Patient's chart and medications reviewed MRCP, ERCP findings and procedures noted and appreciated Cholecystectomy scheduled for tomorrow 05/20/2021 per surgery Hospitalist Physical - Constitutional Vitals: Temp Pulse Resp BP Pulse Ox 98.5 F 52 L 18 101/51 93 05/19/21 03:58 05/19/21 03:58 05/19/21 03:58 05/19/21 03:58 05/19/21 03:58 General appearance: Present: no acute distress, well-nourished - EENT Eyes: Present: PERRL, EOM intact - Neck Neck: Present: supple, normal ROM - Respiratory Respiratory effort: normal Respiratory: bilateral: diminished, negative: rales, rhonchi, wheezing - Cardiovascular Rhythm: regular Heart Sounds: Present: S1 & S2 - Extremities Extremities: no ischemia, No edema - Abdominal General gastrointestinal: soft, non-tender, non-distended - Integumentary Integumentary: Present: clear, warm - Psychiatric Psychiatric: appropriate mood/affect, cooperative - Neurologic Neurologic: moves all extremities Results - Labs CBC & Chem 7: 05/18/21 03:37 05/19/21 05:00 Labs: Laboratory Last Values WBC 5.9 K/mm3 (4.5-11.0) 05/18/21 03:37 RBC 4.88 M/mm3 (3.65-5.03) 05/18/21 03:37 Hgb 10.6 gm/dl (10.1-14.3) 05/18/21 03:37 Hct 34.7 % (30.3-42.9) 05/18/21 03:37 MCV 71 fl (79-97) L 05/18/21 03:37 MCH 22 pg (28-32) L 05/18/21 03:37 MCHC 31 % (30-34) 05/18/21 03:37 RDW 17.6 % (13.2-15.2) H 05/18/21 03:37 Plt Count 303 K/mm3 (140-440) 05/18/21 03:37 Lymph % (Auto) 30.0 % (13.4-35.0) 05/18/21 03:37 [place] % (Auto) 6.5 % (0.0-7.3) 05/18/21 03:37 Eos % (Auto) 0.5 % (0.0-4.3) 05/18/21 03:37 Baso % (Auto) 0.6 % (0.0-1.8) 05/18/21 03:37 Lymph # (Auto) 1.8 K/mm3 (1.2-5.4) 05/18/21 03:37 [place] # (Auto) 0.4 K/mm3 (0.0-0.8) 05/18/21 03:37 Eos # (Auto) 0.0 K/mm3 (0.0-0.4) 05/18/21 03:37 Baso # (Auto) 0.0 K/mm3 (0.0-0.1) 05/18/21 03:37 Seg Neutrophils % 62.4 % (40.0-70.0) 05/18/21 03:37 Seg Neutrophils # 3.7 K/mm3 (1.8-7.7) 05/18/21 03:37 Sodium 132 mmol/L (137-145) L D 05/19/21 05:00 Potassium 3.6 mmol/L (3.6-5.0) 05/19/21 05:00 Chloride 103.9 mmol/L (98-107) 05/19/21 05:00 Carbon Dioxide 21 mmol/L (22-30) L 05/19/21 05:00 Anion Gap 11 mmol/L 05/19/21 05:00 BUN 7 mg/dL (7-17) 05/19/21 05:00 Creatinine 0.7 mg/dL (0.6-1.2) 05/19/21 05:00 Estimated GFR > 60 ml/min 05/19/21 05:00 BUN/Creatinine Ratio 10 % 05/19/21 05:00 Glucose 110 mg/dL (65-100) H 05/19/21 05:00 Calcium 8.5 mg/dL (8.4-10.2) 05/19/21 05:00 Total Bilirubin 0.80 mg/dL (0.1-1.2) 05/19/21 05:00 AST 33 units/L (5-40) 05/19/21 05:00 ALT 86 units/L (7-56) H 05/19/21 05:00 Alkaline Phosphatase 141 units/L (35-129) H 05/19/21 05:00 Total Protein 5.9 g/dL (6.3-8.2) L D 05/19/21 05:00 Albumin 3.5 g/dL (3.9-5) L 05/19/21 05:00 Albumin/Globulin Ratio 1.5 % 05/19/21 05:00 Lipase 71 units/L (13-60) H 05/19/21 05:00 HCG, Qual Negative (Negative) 05/17/21 15:09 Urine Color Mandi (Yellow) 05/17/21 Unknown Urine Turbidity Slightly-cloudy (Clear) 05/17/21 Unknown Urine pH 5.0 (5.0-7.0) 05/17/21 Unknown Ur Specific [place] 1.017 (1.003-1.030) 05/17/21 Unknown Urine Protein <15 mg/dl mg/dL (Negative) 05/17/21 Unknown Urine Glucose (UA) Neg mg/dL (Negative) 05/17/21 Unknown Urine Ketones 20 mg/dL (Negative) 05/17/21 Unknown Urine Blood Neg (Negative) 05/17/21 Unknown Urine Nitrite Neg (Negative) 05/17/21 Unknown Urine Bilirubin Neg (Negative) 05/17/21 Unknown Urine Urobilinogen 4.0 mg/dL (<2.0) 05/17/21 Unknown Ur Leukocyte Esterase Neg (Negative) 05/17/21 Unknown Urine WBC (Auto) 1.0 /HPF (0.0-6.0) 05/17/21 Unknown Urine RBC (Auto) 1.0 /HPF (0.0-6.0) 05/17/21 Unknown U Epithel Cells (Auto) < 1.0 /HPF (0-13.0) 05/17/21 Unknown Urine Bacteria (Auto) 1+ /HPF (Negative) 05/17/21 Unknown Urine Mucus Few /HPF 05/17/21 Unknown Tobias/IV: Voiding Method Toilet Active Medications - Current Medications Current Medications: Generic Name Dose Route Start Last Admin Trade Name Freq PRN Reason Stop Dose Admin Acetaminophen 650 mg 05/17/21 19:14 Acetaminophen 325 Mg Tab PO Q4H PRN Pain MILD(1-3)/Fever >100.5/ALMEIDA Famotidine 20 mg 05/17/21 22:00 05/19/21 07:46 Famotidine 20 Mg/2 Ml Inj IV 20 mg BID MOHSEN Administration Hydromorphone HCl 0.5 mg 05/17/21 19:14 05/18/21 22:30 Hydromorphone 1 Mg/1 Ml Inj IV 0.5 mg Q3H PRN Administration Pain , Severe (7-10) Dextrose/Sodium Chloride 1,000 mls @ 75 mls/hr 05/17/21 20:00 05/18/21 22:47 D5ns IV 75 mls/hr DIRECT MOHSEN Administration Metoclopramide HCl 10 mg 05/17/21 19:14 05/19/21 09:00 Metoclopramide 10 Mg/2 Ml Inj IV 10 mg Q6H PRN Administration Nausea And Vomiting Morphine Sulfate 2 mg 05/17/21 19:14 05/18/21 10:17 Morphine 2 Mg/1 Ml Inj IV 2 mg Q4H PRN Administration Pain, Moderate (4-6) Ondansetron HCl 4 mg 05/17/21 19:14 05/18/21 22:25 Ondansetron 4 Mg/2 Ml Inj IV 4 mg Q3H PRN Administration Nausea And Vomiting Sodium Chloride 10 ml 05/17/21 22:00 05/19/21 07:46 Sodium Chloride 0.9% 10 Ml Flush Syringe IV 10 ml BID MOHSEN Administration Sodium Chloride 10 ml 05/17/21 19:14 Sodium Chloride 0.9% 10 Ml Flush Syringe IV PRN PRN LINE FLUSH Nutrition/Malnutrition Assess - Dietary Evaluation Nutrition/Malnutrition Findings: Nutrition Notes Start: 05/18/21 09:38 Freq: Status: Active Protocol: Document 05/18/21 09:38 HANNA (Rec: 05/18/21 09:39 HANNA [id number]) Nutrition Notes Need for Assessment generated from: moss [email or web address] Initial or Follow up Brief Note Subjective/Other Information Pt screened for skin risk, however, Ayad score is 23. Will assess upon further consult or LOS.
--- NOTE | 2021-05-19 13:07 | Gastroenterology Progress Note ---
Assessment and Plan # Abdominal pain/nausea/vomiting # Elevated LFTs - CT showing suspected stone in the common bile duct although no biliary ductal dilation. No signs of pancreatitis. - although CT is negative for pancreatitis, she fits other criteria with elevated lipase and pain. - s/p ERCP which showed dilated CBD without filling defect s/p sphictertomy and balloon sweep without any stones. - suspect stone had passed before. - clinically stable - LFTs trending down. Rec - Dr. Solano with surgery consulted and recommends CCY prior to discharge. - will sign off. please call as needed. - Patient Problems (1) Abnormal LFTs Current Visit: Yes Status: Acute (2) Choledocholithiasis Current Visit: Yes Status: Acute (3) Elevated lipase Current Visit: Yes Status: Acute Subjective Date of service: 05/19/21 Interval history: Patient reports her pain is better today. Tolerated clear liquids. No vomiting. Objective - Constitutional Vitals: Temp Pulse Resp BP Pulse Ox 98.5 F 52 L 18 101/51 93 05/19/21 03:58 05/19/21 03:58 05/19/21 03:58 05/19/21 03:58 05/19/21 03:58 General appearance: no acute distress - EENT Eyes: EOM intact ENT: hearing intact - Neck Neck: supple - Respiratory Respiratory effort: normal - Cardiovascular Rhythm: regular Heart Sounds: Present: S1 & S2 - Gastrointestinal General gastrointestinal: Present: soft, tender, non-distended - Integumentary Integumentary: Present: clear, warm - Neurologic Neurological: alert and oriented x3 - Psychiatric Psychiatric: appropriate mood/affect - Labs CBC & Chem 7: 05/18/21 03:37 05/19/21 05:00 Labs: Laboratory Results - last 24 hr 05/19/21 05:00 Sodium 132 L D Potassium 3.6 Chloride 103.9 Carbon Dioxide 21 L Anion Gap 11 BUN 7 Creatinine 0.7 Estimated GFR > 60 BUN/Creatinine Ratio 10 Glucose 110 H Calcium 8.5 Total Bilirubin 0.80 AST 33 ALT 86 H Alkaline Phosphatase 141 H Total Protein 5.9 L D Albumin 3.5 L Albumin/Globulin Ratio 1.5 Lipase 71 H
[2021-05-19] MEDS: D5W/0.9% NACL 1,000 ML IV SCH (13:27)
--- NOTE | 2021-05-19 13:59 | Consultation ---
History of Present Illness Consult date: 05/19/21 Chief complaint: Abdominal pain - History of present illness History of present illness: 6-year-old female with no past medical history who presents to the emergency room with complaints of upper abdominal pain that started on Friday05/16/21. Patient states the pain was sharp and radiates to the sides and back. She also had nausea and vomiting. She has never had pain like this before. No alleviating or exacerbating factors. Afebrile. Patient found to have gallstone pancreatitis, choledocholithiasis. She underwent ERCP yesterday. Surgery is consulted to evaluate for cholecystectomy. Today the patient states her pain is resolved. She has not had any nausea or vomiting and is tolerating clear liquids. She is asking for regular food Past History Past Medical History: No medical history Past Surgical History: No surgical history Social history: no significant social history, lives with family, full code Family history: no significant family history Medications and Allergies Allergies Allergy/AdvReac Type Severity Reaction Status Date / Time No Known Allergies Allergy Verified 05/17/21 12:44 Home Medications Medication Instructions Recorded Confirmed Last Taken Type Fluconazole [Diflucan TAB] 150 mg PO QDAY 1 Days #1 tablet 05/19/21 Unknown Rx Active Meds: Active Medications Acetaminophen (Acetaminophen 325 Mg Tab) 650 mg PO Q4H PRN PRN Reason: Pain MILD(1-3)/Fever >100.5/ALMEIDA Famotidine (Famotidine 20 Mg/2 Ml Inj) 20 mg IV BID MOHSEN Last Admin: 05/19/21 07:46 Dose: 20 mg Hydromorphone HCl (Hydromorphone 1 Mg/1 Ml Inj) 0.5 mg IV Q3H PRN PRN Reason: Pain , Severe (7-10) Last Admin: 05/18/21 22:30 Dose: 0.5 mg Dextrose/Sodium Chloride (D5ns) 1,000 mls @ 75 mls/hr IV DIRECT MOHSEN Last Admin: 05/19/21 13:27 Dose: 75 mls/hr Metoclopramide HCl (Metoclopramide 10 Mg/2 Ml Inj) 10 mg IV Q6H PRN PRN Reason: Nausea And Vomiting Last Admin: 05/19/21 09:00 Dose: 10 mg Morphine Sulfate (Morphine 2 Mg/1 Ml Inj) 2 mg IV Q4H PRN PRN Reason: Pain, Moderate (4-6) Last Admin: 05/18/21 10:17 Dose: 2 mg Ondansetron HCl (Ondansetron 4 Mg/2 Ml Inj) 4 mg IV Q3H PRN PRN Reason: Nausea And Vomiting Last Admin: 05/18/21 22:25 Dose: 4 mg Sodium Chloride (Sodium Chloride 0.9% 10 Ml Flush Syringe) 10 ml IV BID MOHSEN Last Admin: 05/19/21 07:46 Dose: 10 ml Sodium Chloride (Sodium Chloride 0.9% 10 Ml Flush Syringe) 10 ml IV PRN PRN PRN Reason: LINE FLUSH Review of Systems All systems: negative (10 point ROS performed and negative except for that listed in HPI) Exam Vital Signs Temp Resp BP 98.4 F 16 117/65 05/17/21 12:43 05/17/21 12:43 05/17/21 12:43 Narrative exam: Gen.: Awake, alert, oriented x3. No apparent distress ENT: Trachea midline. No lymphadenopathy. No scleral icterus or conjunctival pallor CV: S1, S2 present Respiratory: No audible wheezes Abdomen: Soft, nondistended, nontender. No rebound, rigidity, guarding Extremities: No clubbing, cyanosis, edema Results - Labs 05/18/21 03:37 05/19/21 05:00 Abnormal lab results 05/19/21 Range/Units 05:00 Sodium 132 L D (137-145) mmol/L Carbon Dioxide 21 L (22-30) mmol/L Glucose 110 H (65-100) mg/dL ALT 86 H (7-56) units/L Alkaline Phosphatase 141 H (35-129) units/L Total Protein 5.9 L D (6.3-8.2) g/dL Albumin 3.5 L (3.9-5) g/dL Lipase 71 H (13-60) units/L Diabetes panel 05/19/21 Range/Units 05:00 Sodium 132 L D (137-145) mmol/L Potassium 3.6 (3.6-5.0) mmol/L Chloride 103.9 (98-107) mmol/L Carbon Dioxide 21 L (22-30) mmol/L BUN 7 (7-17) mg/dL Creatinine 0.7 (0.6-1.2) mg/dL Glucose 110 H (65-100) mg/dL Calcium 8.5 (8.4-10.2) mg/dL AST 33 (5-40) units/L ALT 86 H (7-56) units/L Alkaline Phosphatase 141 H (35-129) units/L Total Protein 5.9 L D (6.3-8.2) g/dL Albumin 3.5 L (3.9-5) g/dL Calcium panel 05/19/21 Range/Units 05:00 Calcium 8.5 (8.4-10.2) mg/dL Albumin 3.5 L (3.9-5) g/dL Pituitary panel 05/19/21 Range/Units 05:00 Sodium 132 L D (137-145) mmol/L Potassium 3.6 (3.6-5.0) mmol/L Chloride 103.9 (98-107) mmol/L Carbon Dioxide 21 L (22-30) mmol/L BUN 7 (7-17) mg/dL Creatinine 0.7 (0.6-1.2) mg/dL Glucose 110 H (65-100) mg/dL Calcium 8.5 (8.4-10.2) mg/dL Adrenal panel 05/19/21 Range/Units 05:00 Sodium 132 L D (137-145) mmol/L Potassium 3.6 (3.6-5.0) mmol/L Chloride 103.9 (98-107) mmol/L Carbon Dioxide 21 L (22-30) mmol/L BUN 7 (7-17) mg/dL Creatinine 0.7 (0.6-1.2) mg/dL Glucose 110 H (65-100) mg/dL Calcium 8.5 (8.4-10.2) mg/dL Total Bilirubin 0.80 (0.1-1.2) mg/dL AST 33 (5-40) units/L ALT 86 H (7-56) units/L Alkaline Phosphatase 141 H (35-129) units/L Total Protein 5.9 L D (6.3-8.2) g/dL Albumin 3.5 L (3.9-5) g/dL - Imaging CT scan - abdomen: report reviewed, image reviewed CT scan - pelvis: report reviewed, image reviewed US - abdomen: report reviewed, image reviewed Additional studies: MRCP Assessment and Plan 30-year-old female with 1. Choledocholithiasis 2. Pancreatitis secondary to #1 3. Cholelithiasis Pt stable, much improved. LFTs and bilirubin trending down Plan: 1. Reg diet 2. NPO p MN tonight 3. gentle IVF 4. prn antiemetics and pain control 5. Discussed cholecystectomy with patient. Indication along with risks, benefits, alternatives discussed in detail. All questions answered. Recommend cholecystectomy prior to discharge. Patient is agreeable and consent obtained. Patient added to the OR for tomorrow 05/20/2021 at 11 AM. Thank you for this consultation. Please call with any questions or concerns. Evaluation and treatment of this patient was during the time of the national and state emergency arising from COVID19 coronavirus pandemic. Treatment and proced ures performed meet the current and available best practice and guidelines for patient during the COVID pandemic.
[2021-05-20] MEDS: FAMOTIDINE 20 MG/2 ML INJ IV SCH (09:53)
[2021-05-20] MEDS ORDERED: LIDOCAINE MPF (2%) 20 MG/1 ML VIAL 5 ML ONE (10:31)
[2021-05-20] MEDS ORDERED: MIDAZOLAM 2 MG/2 ML INJ ONE (10:32)
[2021-05-20] MEDS ORDERED: fentaNYL 100 MCG/2 ML INJ ONE (10:32)
[2021-05-20] MEDS ORDERED: propofoL 200 MG/20 ML VIAL IV ONE (10:32)
[2021-05-20] MEDS ORDERED: BUPIVACAINE/PF (0.5%) 5 MG/1 ML 30 ML VIAL INFILTRATI ONE ×2 (10:34→11:31)
[2021-05-20] MEDS ORDERED: LIDOCAINE (1%) 10 MG/1 ML VIAL 20 ML MDV ONE (10:34)
--- NOTE | 2021-05-20 10:34 | Progress Note ---
Assessment and Plan Assessment and plan: 30-year-old female patient with no significant past medical history was admitted with acute nausea vomiting initial work-up is consistent with choledocholithiasis and mild acute pancreatitis, acute transaminitis, GI evaluated the patient, patient underwent abdominal ultrasound, CT abdomen and pelvis, MRCP and ERCP findings reviewed, Cholecystectomy scheduled for today 05/20/21. Patient is n.p.o. from midnight Abdominal ultrasound 05/17/2019:cholelithiasis without evidence of cholecystitis CT abdomen and pelvis; 05/17/2021 punctate stone in the common bile duct, cholelithiasis there is no common duct or intrahepatic bile duct dilatation do not see CT evidence of pancreatitis or cholecystitis MRCP; 05/18/2021 Cholelithiasis and obstructing choledocholithiasis. ERCP 05/18/2021; Procedure: ERCP with ES Pre-op diagnosis: Choledocholithiasis Post-op diagnosis: other (Dilated CBD, no stones noted) Findings: 1. Normal major papilla. 2. Normal pancreatic duct. 3. CBD dilated to 12 mm, no clear filling defects. Swept x 2 with 12 mm balloon after sphincterotomy, with no stone return. Started clear liquids this morning --Choledocholithiasis Current Visit: Yes Status: Acute Elevated LFTs and elevated lipase suggests choledocholithiasis and possible common bile duct obstruction GI evaluation noted and appreciated MRCP, ERCP findings noted Cholecystectomy today --Acute transaminitis Current Visit: Yes Status: Acute Secondary to cholelithiasis and CBD stone Closely monitor, GI following LFTs trending down, --Elevated lipase/acute pancreatitis Current Visit: Yes Status: Acute No evidence of pancreatitis on the CAT scan Keep patient n.p.o. --DVT prophylaxis Current Visit: Yes Status: Acute On SCDs and GI prophylaxis -- Advance care planning Current Visit: Yes Status: Acute Disease education conducted, care plan discussed, diagnosis disc, prognosis discussed. Patient is full code. Patient verbalized understanding and agreement with care plan. +30 minutes. Consults and recommendations noted and appreciated We will closely monitor patient and adjust management as needed 05/18; MRCP, ERCP findings reviewed, Pending cholecystectomy per surgeon 05/19; cholecystectomy scheduled for tomorrow, n.p.o. from midnight 05/20: Scheduled for cholecystectomy today, patient is n.p.o. History Interval history: I seen and examined the patient at the bedside Patient's chart and medications reviewed Patient feels slightly better, for cholecystectomy today Vital signs reviewed Hospitalist Physical - Constitutional Vitals: Temp Pulse Resp BP Pulse Ox 98.0 F 67 16 114/69 98 05/19/21 21:15 05/19/21 21:15 05/19/21 21:15 05/19/21 21:15 05/20/21 08:29 General appearance: Present: no acute distress, well-nourished - EENT Eyes: Present: PERRL, EOM intact - Neck Neck: Present: supple, normal ROM - Respiratory Respiratory effort: normal Respiratory: bilateral: diminished, negative: rales, rhonchi, wheezing - Cardiovascular Rhythm: regular Heart Sounds: Present: S1 & S2 - Extremities Extremities: no ischemia, No edema - Abdominal General gastrointestinal: soft, non-tender, non-distended, normal bowel sounds - Integumentary Integumentary: Present: clear, warm - Psychiatric Psychiatric: appropriate mood/affect, cooperative - Neurologic Neurologic: CNII-XII intact, moves all extremities (A day I still august) Results - Labs CBC & Chem 7: 05/18/21 03:37 05/19/21 05:00 Labs: Laboratory Last Values WBC 5.9 K/mm3 (4.5-11.0) 05/18/21 03:37 RBC 4.88 M/mm3 (3.65-5.03) 05/18/21 03:37 Hgb 10.6 gm/dl (10.1-14.3) 05/18/21 03:37 Hct 34.7 % (30.3-42.9) 05/18/21 03:37 MCV 71 fl (79-97) L 05/18/21 03:37 MCH 22 pg (28-32) L 05/18/21 03:37 MCHC 31 % (30-34) 05/18/21 03:37 RDW 17.6 % (13.2-15.2) H 05/18/21 03:37 Plt Count 303 K/mm3 (140-440) 05/18/21 03:37 Lymph % (Auto) 30.0 % (13.4-35.0) 05/18/21 03:37 [place] % (Auto) 6.5 % (0.0-7.3) 05/18/21 03:37 Eos % (Auto) 0.5 % (0.0-4.3) 05/18/21 03:37 Baso % (Auto) 0.6 % (0.0-1.8) 05/18/21 03:37 Lymph # (Auto) 1.8 K/mm3 (1.2-5.4) 05/18/21 03:37 [place] # (Auto) 0.4 K/mm3 (0.0-0.8) 05/18/21 03:37 Eos # (Auto) 0.0 K/mm3 (0.0-0.4) 05/18/21 03:37 Baso # (Auto) 0.0 K/mm3 (0.0-0.1) 05/18/21 03:37 Seg Neutrophils % 62.4 % (40.0-70.0) 05/18/21 03:37 Seg Neutrophils # 3.7 K/mm3 (1.8-7.7) 05/18/21 03:37 Sodium 132 mmol/L (137-145) L D 05/19/21 05:00 Potassium 3.6 mmol/L (3.6-5.0) 05/19/21 05:00 Chloride 103.9 mmol/L (98-107) 05/19/21 05:00 Carbon Dioxide 21 mmol/L (22-30) L 05/19/21 05:00 Anion Gap 11 mmol/L 05/19/21 05:00 BUN 7 mg/dL (7-17) 05/19/21 05:00 Creatinine 0.7 mg/dL (0.6-1.2) 05/19/21 05:00 Estimated GFR > 60 ml/min 05/19/21 05:00 BUN/Creatinine Ratio 10 % 05/19/21 05:00 Glucose 110 mg/dL (65-100) H 05/19/21 05:00 Calcium 8.5 mg/dL (8.4-10.2) 05/19/21 05:00 Total Bilirubin 0.80 mg/dL (0.1-1.2) 05/19/21 05:00 AST 33 units/L (5-40) 05/19/21 05:00 ALT 86 units/L (7-56) H 05/19/21 05:00 Alkaline Phosphatase 141 units/L (35-129) H 05/19/21 05:00 Total Protein 5.9 g/dL (6.3-8.2) L D 05/19/21 05:00 Albumin 3.5 g/dL (3.9-5) L 05/19/21 05:00 Albumin/Globulin Ratio 1.5 % 05/19/21 05:00 Lipase 71 units/L (13-60) H 05/19/21 05:00 HCG, Qual Negative (Negative) 05/17/21 15:09 Urine Color Mandi (Yellow) 05/17/21 Unknown Urine Turbidity Slightly-cloudy (Clear) 05/17/21 Unknown Urine pH 5.0 (5.0-7.0) 05/17/21 Unknown Ur Specific [place] 1.017 (1.003-1.030) 05/17/21 Unknown Urine Protein <15 mg/dl mg/dL (Negative) 05/17/21 Unknown Urine Glucose (UA) Neg mg/dL (Negative) 05/17/21 Unknown Urine Ketones 20 mg/dL (Negative) 05/17/21 Unknown Urine Blood Neg (Negative) 05/17/21 Unknown Urine Nitrite Neg (Negative) 05/17/21 Unknown Urine Bilirubin Neg (Negative) 05/17/21 Unknown Urine Urobilinogen 4.0 mg/dL (<2.0) 05/17/21 Unknown Ur Leukocyte Esterase Neg (Negative) 05/17/21 Unknown Urine WBC (Auto) 1.0 /HPF (0.0-6.0) 05/17/21 Unknown Urine RBC (Auto) 1.0 /HPF (0.0-6.0) 05/17/21 Unknown U Epithel Cells (Auto) < 1.0 /HPF (0-13.0) 05/17/21 Unknown Urine Bacteria (Auto) 1+ /HPF (Negative) 05/17/21 Unknown Urine Mucus Few /HPF 05/17/21 Unknown Tobias/IV: Voiding Method Toilet Active Medications - Current Medications Current Medications: Generic Name Dose Route Start Last Admin Trade Name Freq PRN Reason Stop Dose Admin Acetaminophen 650 mg 05/17/21 19:14 Acetaminophen 325 Mg Tab PO Q4H PRN Pain MILD(1-3)/Fever >100.5/ALMEIDA Famotidine 20 mg 05/17/21 22:00 05/20/21 09:53 Famotidine 20 Mg/2 Ml Inj IV Not Given BID MOHSEN Hydromorphone HCl 0.5 mg 05/17/21 19:14 05/18/21 22:30 Hydromorphone 1 Mg/1 Ml Inj IV 0.5 mg Q3H PRN Administration Pain , Severe (7-10) Dextrose/Sodium Chloride 1,000 mls @ 75 mls/hr 05/17/21 20:00 05/19/21 13:27 D5ns IV 75 mls/hr DIRECT MOHSEN Administration Metoclopramide HCl 10 mg 05/17/21 19:14 05/19/21 09:00 Metoclopramide 10 Mg/2 Ml Inj IV 10 mg Q6H PRN Administration Nausea And Vomiting Morphine Sulfate 2 mg 05/17/21 19:14 05/18/21 10:17 Morphine 2 Mg/1 Ml Inj IV 2 mg Q4H PRN Administration Pain, Moderate (4-6) Ondansetron HCl 4 mg 05/17/21 19:14 05/18/21 22:25 Ondansetron 4 Mg/2 Ml Inj IV 4 mg Q3H PRN Administration Nausea And Vomiting Sodium Chloride 10 ml 05/17/21 22:00 05/20/21 09:54 Sodium Chloride 0.9% 10 Ml Flush Syringe IV Not Given BID MOHSEN Sodium Chloride 10 ml 05/17/21 19:14 Sodium Chloride 0.9% 10 Ml Flush Syringe IV PRN PRN LINE FLUSH Nutrition/Malnutrition Assess - Dietary Evaluation Nutrition/Malnutrition Findings: Nutrition Notes Start: 05/18/21 09:38 Freq: Status: Active Protocol: Document 05/18/21 09:38 HANNA (Rec: 05/18/21 09:39 HANNA [id number]) Nutrition Notes Need for Assessment generated from: infantry operations specialist Initial or Follow up Brief Note Subjective/Other Information Pt screened for skin risk, however, Ayad score is 23. Will assess upon further consult or LOS.
--- NOTE | 2021-05-20 10:44 | Anesthesia Consultation ---
Anesthesia Consult and Med Hx Date of service: 05/20/21 - Airway Anesthetic Teeth Evaluation: Good ROM Head & Neck: Adequate Mental/Hyoid Distance: Adequate Mallampati Class: Class I Intubation Access Assessment: Good - Pulmonary Exam CTA: Yes - Cardiac Exam Cardiac Exam: RRR - Pre-Operative Health Status ASA Pre-Surgery Classification: ASA2 Proposed Anesthetic Plan: General - Pulmonary Hx Asthma: No COPD: No Hx Pneumonia: No - Gastrointestinal Hx Gastroesophageal Reflux Disease: Yes (controlled) - Endocrine Hx End Stage Renal Disease: No Hx Liver Disease: Yes (gallstones) - Other Systems Hx Cancer: No - Additional Comments Anesthesia Medical History Comments: no problem with anesthesia in past
--- NOTE | 2021-05-20 10:44 | Anesthesia Day of Surgery ---
Anesthesia Day of Surgery - Day of Surgery Patient Examined: Yes Patient H&P Reviewed: Yes Patient is NPO: Yes
--- NOTE | 2021-05-20 11:25 | Progress Note ---
Hospitalist Physical - Constitutional Vitals: Temp Pulse Resp BP Pulse Ox 98.0 F 67 16 114/69 98 05/19/21 21:15 05/19/21 21:15 05/19/21 21:15 05/19/21 21:15 05/20/21 08:29 General appearance: Present: no acute distress, well-nourished Results - Labs CBC & Chem 7: 05/18/21 03:37 05/19/21 05:00 Labs: Laboratory Last Values WBC 5.9 K/mm3 (4.5-11.0) 05/18/21 03:37 RBC 4.88 M/mm3 (3.65-5.03) 05/18/21 03:37 Hgb 10.6 gm/dl (10.1-14.3) 05/18/21 03:37 Hct 34.7 % (30.3-42.9) 05/18/21 03:37 MCV 71 fl (79-97) L 05/18/21 03:37 MCH 22 pg (28-32) L 05/18/21 03:37 MCHC 31 % (30-34) 05/18/21 03:37 RDW 17.6 % (13.2-15.2) H 05/18/21 03:37 Plt Count 303 K/mm3 (140-440) 05/18/21 03:37 Lymph % (Auto) 30.0 % (13.4-35.0) 05/18/21 03:37 Snyder % (Auto) 6.5 % (0.0-7.3) 05/18/21 03:37 Eos % (Auto) 0.5 % (0.0-4.3) 05/18/21 03:37 Baso % (Auto) 0.6 % (0.0-1.8) 05/18/21 03:37 Lymph # (Auto) 1.8 K/mm3 (1.2-5.4) 05/18/21 03:37 Snyder # (Auto) 0.4 K/mm3 (0.0-0.8) 05/18/21 03:37 Eos # (Auto) 0.0 K/mm3 (0.0-0.4) 05/18/21 03:37 Baso # (Auto) 0.0 K/mm3 (0.0-0.1) 05/18/21 03:37 Seg Neutrophils % 62.4 % (40.0-70.0) 05/18/21 03:37 Seg Neutrophils # 3.7 K/mm3 (1.8-7.7) 05/18/21 03:37 Sodium 132 mmol/L (137-145) L D 05/19/21 05:00 Potassium 3.6 mmol/L (3.6-5.0) 05/19/21 05:00 Chloride 103.9 mmol/L (98-107) 05/19/21 05:00 Carbon Dioxide 21 mmol/L (22-30) L 05/19/21 05:00 Anion Gap 11 mmol/L 05/19/21 05:00 BUN 7 mg/dL (7-17) 05/19/21 05:00 Creatinine 0.7 mg/dL (0.6-1.2) 05/19/21 05:00 Estimated GFR > 60 ml/min 05/19/21 05:00 BUN/Creatinine Ratio 10 % 05/19/21 05:00 Glucose 110 mg/dL (65-100) H 05/19/21 05:00 Calcium 8.5 mg/dL (8.4-10.2) 05/19/21 05:00 Total Bilirubin 0.80 mg/dL (0.1-1.2) 05/19/21 05:00 AST 33 units/L (5-40) 05/19/21 05:00 ALT 86 units/L (7-56) H 05/19/21 05:00 Alkaline Phosphatase 141 units/L (35-129) H 05/19/21 05:00 Total Protein 5.9 g/dL (6.3-8.2) L D 05/19/21 05:00 Albumin 3.5 g/dL (3.9-5) L 05/19/21 05:00 Albumin/Globulin Ratio 1.5 % 05/19/21 05:00 Lipase 71 units/L (13-60) H 05/19/21 05:00 HCG, Qual Negative (Negative) 05/17/21 15:09 Urine Color Mandi (Yellow) 05/17/21 Unknown Urine Turbidity Slightly-cloudy (Clear) 05/17/21 Unknown Urine pH 5.0 (5.0-7.0) 05/17/21 Unknown Ur Specific [place] 1.017 (1.003-1.030) 05/17/21 Unknown Urine Protein <15 mg/dl mg/dL (Negative) 05/17/21 Unknown Urine Glucose (UA) Neg mg/dL (Negative) 05/17/21 Unknown Urine Ketones 20 mg/dL (Negative) 05/17/21 Unknown Urine Blood Neg (Negative) 05/17/21 Unknown Urine Nitrite Neg (Negative) 05/17/21 Unknown Urine Bilirubin Neg (Negative) 05/17/21 Unknown Urine Urobilinogen 4.0 mg/dL (<2.0) 05/17/21 Unknown Ur Leukocyte Esterase Neg (Negative) 05/17/21 Unknown Urine WBC (Auto) 1.0 /HPF (0.0-6.0) 05/17/21 Unknown Urine RBC (Auto) 1.0 /HPF (0.0-6.0) 05/17/21 Unknown U Epithel Cells (Auto) < 1.0 /HPF (0-13.0) 05/17/21 Unknown Urine Bacteria (Auto) 1+ /HPF (Negative) 05/17/21 Unknown Urine Mucus Few /HPF 05/17/21 Unknown Tobias/IV: Voiding Method Toilet Active Medications - Current Medications Current Medications: Generic Name Dose Route Start Last Admin Trade Name Freq PRN Reason Stop Dose Admin Acetaminophen 650 mg 05/17/21 19:14 Acetaminophen 325 Mg Tab PO Q4H PRN Pain MILD(1-3)/Fever >100.5/ALMEIDA Famotidine 20 mg 05/17/21 22:00 05/20/21 09:53 Famotidine 20 Mg/2 Ml Inj IV Not Given BID MOHSEN Hydromorphone HCl 0.5 mg 05/17/21 19:14 05/18/21 22:30 Hydromorphone 1 Mg/1 Ml Inj IV 0.5 mg Q3H PRN Administration Pain , Severe (7-10) Dextrose/Sodium Chloride 1,000 mls @ 75 mls/hr 05/17/21 20:00 05/19/21 13:27 D5ns IV 75 mls/hr DIRECT MOHSEN Administration Metoclopramide HCl 10 mg 05/17/21 19:14 05/19/21 09:00 Metoclopramide 10 Mg/2 Ml Inj IV 10 mg Q6H PRN Administration Nausea And Vomiting Morphine Sulfate 2 mg 05/17/21 19:14 05/18/21 10:17 Morphine 2 Mg/1 Ml Inj IV 2 mg Q4H PRN Administration Pain, Moderate (4-6) Ondansetron HCl 4 mg 05/17/21 19:14 05/18/21 22:25 Ondansetron 4 Mg/2 Ml Inj IV 4 mg Q3H PRN Administration Nausea And Vomiting Sodium Chloride 10 ml 05/17/21 22:00 05/20/21 09:54 Sodium Chloride 0.9% 10 Ml Flush Syringe IV Not Given BID MOHSEN Sodium Chloride 10 ml 05/17/21 19:14 Sodium Chloride 0.9% 10 Ml Flush Syringe IV PRN PRN LINE FLUSH Nutrition/Malnutrition Assess - Dietary Evaluation Nutrition/Malnutrition Findings: Nutrition Notes Start: 05/18/21 09:38 Freq: Status: Active Protocol: Document 05/18/21 09:38 HANNA (Rec: 05/18/21 09:39 HANNA [id number]) Nutrition Notes Need for Assessment generated from: paper deliverer Initial or Follow up Brief Note Subjective/Other Information Pt screened for skin risk, however, Ayad score is 23. Will assess upon further consult or LOS.
[2021-05-20] MEDS ORDERED: HYDROmorphone 1 MG/1 ML INJ ONE (11:27)
[2021-05-20] MEDS ORDERED: KETOROLAC 30 MG/1 ML INJ ONE (11:28)
[2021-05-20] MEDS ORDERED: ROCURONIUM 50 MG/5 ML INJ IV ONE (11:28)
[2021-05-20] MEDS ORDERED: ONDANSETRON 4 MG/2 ML INJ ONE (11:28)
--- NOTE | 2021-05-20 11:28 | Discharge Summary ---
Providers - Providers Date of Admission: 05/17/21 18:00 Date of discharge: 05/20/21 Attending physician: MARLENE BELTRAN 05/17/21 18:57 Consult to Physician [CONS] Stat Comment: Consulting Provider: ANDREW GONZALEZ Physician Instructions: Reason For Exam: Choledocholithiasis 05/17/21 19:38 Consult to Physician [CONS] Routine Comment: Consulting Provider: ALEKSANDRA HERNANDEZ Physician Instructions: Reason For Exam: Cholelithiasis/cholecystitis Primary care physician: THALIA BROWN Hospitalization Reason for admission: Acute choledocholithiasis/intractable nausea vomiting abdominal pain Condition: Stable Pertinent studies: Abdominal ultrasound 05/17/2019:cholelithiasis without evidence of cholecystitis CT abdomen and pelvis; 05/17/2021 punctate stone in the common bile duct, cholelithiasis there is no common duct or intrahepatic bile duct dilatation do not see CT evidence of pancreatitis or cholecystitis MRCP; 05/18/2021 Cholelithiasis and obstructing choledocholithiasis. Lap cholecystectomy; 05/18/2021 Procedures: Abdominal ultrasound 05/17/2019:cholelithiasis without evidence of cholecystitis CT abdomen and pelvis; 05/17/2021 punctate stone in the common bile duct, cholelithiasis there is no common duct or intrahepatic bile duct dilatation do not see CT evidence of pancreatitis or cholecystitis MRCP; 05/18/2021 Cholelithiasis and obstructing choledocholithiasis. ERCP 05/18/2021; Procedure: ERCP with ES Pre-op diagnosis: Choledocholithiasis Post-op diagnosis: other (Dilated CBD, no stones noted) Findings: 1. Normal major papilla. 2. Normal pancreatic duct. 3. CBD dilated to 12 mm, no clear filling defects. Swept x 2 with 12 mm balloon after sphincterotomy, with no stone return. Started clear liquids this morning Hospital course: 30-year-old female patient with no significant past medical history was admitted with acute nausea vomiting initial work-up is consistent with choledocholithiasis and mild acute pancreatitis, acute transaminitis, GI evaluated the patient, patient underwent abdominal ultrasound, CT abdomen and pelvis, MRCP and ERCP findings reviewed, Cholecystectomy scheduled for today 05/20/21. Patient is n.p.o. from midnight Abdominal ultrasound 05/17/2019:cholelithiasis without evidence of cholecystitis CT abdomen and pelvis; 05/17/2021 punctate stone in the common bile duct, cholelithiasis there is no common duct or intrahepatic bile duct dilatation do not see CT evidence of pancreatitis or cholecystitis MRCP; 05/18/2021 Cholelithiasis and obstructing choledocholithiasis. ERCP 05/18/2021; Procedure: ERCP with ES Pre-op diagnosis: Choledocholithiasis Post-op diagnosis: other (Dilated CBD, no stones noted) Findings: 1. Normal major papilla. 2. Normal pancreatic duct. 3. CBD dilated to 12 mm, no clear filling defects. Swept x 2 with 12 mm balloon after sphincterotomy, with no stone return. Started clear liquids this morning 05/20/2021;s/p lap cholecystectomy --Choledocholithiasis Current Visit: Yes Status: Acute Elevated LFTs and elevated lipase suggests choledocholithiasis and possible common bile duct obstruction GI evaluation noted and appreciated MRCP, ERCP findings noted Cholecystectomy today --Acute transaminitis Current Visit: Yes Status: Acute Secondary to cholelithiasis and CBD stone Closely monitor, GI following LFTs trending down, --Elevated lipase/acute pancreatitis Current Visit: Yes Status: Acute No evidence of pancreatitis on the CAT scan Keep patient n.p.o. --DVT prophylaxis Current Visit: Yes Status: Acute On SCDs and GI prophylaxis -- Advance care planning Current Visit: Yes Status: Acute Disease education conducted, care plan discussed, diagnosis disc, prognosis discussed. Patient is full code. Patient verbalized understanding and agreement with care plan. +30 minutes. Consults and recommendations noted and appreciated We will closely monitor patient and adjust management as needed 05/18; MRCP, ERCP findings reviewed, Pending cholecystectomy per surgeon 05/19; cholecystectomy scheduled for tomorrow, n.p.o. from midnight 05/20: Scheduled for cholecystectomy today, patient is n.p.o. Patient walks Disposition: 01 HOME / SELF CARE / HOMELESS Final Discharge Diagnosis (Prints w/discharge instructions): Acute choledocholithiasis s/p MRCP, ERCP. Acute transaminitis. Acute gallstone pancreatitis pancreatitis. s/p lap cholecystectomy Time spent for discharge: 40 min Core Measure Documentation - Palliative Care Palliative Care/ Comfort Measures: Not Applicable - Core Measures Any of the following diagnoses?: none Exam - Constitutional Vitals: Temp Pulse Resp BP Pulse Ox 98.0 F 67 16 114/69 98 05/19/21 21:15 05/19/21 21:15 05/19/21 21:15 05/19/21 21:15 05/20/21 08:29 General appearance: Present: no acute distress, well-nourished - EENT Eyes: Present: PERRL, EOM intact - Neck Neck: Present: supple, normal ROM - Respiratory Respiratory effort: normal Respiratory: bilateral: diminished, negative: rales, rhonchi, wheezing - Cardiovascular Rhythm: regular Heart Sounds: Present: S1 & S2 - Extremities Extremities: no ischemia, No edema - Abdominal General gastrointestinal: Present: soft, non-tender, non-distended, normal bowel sounds - Integumentary Integumentary: Present: clear, warm - Musculoskeletal Musculoskeletal: strength equal bilaterally - Psychiatric Psychiatric: appropriate mood/affect, cooperative - Neurologic Neurologic: CNII-XII intact, moves all extremities Plan Activity: advance as tolerated Diet: regular Additional Instructions: Follow postoperative instructions explained to you by surgical team. if you have worsening symptoms contact MD or go to the nearest emergency room as needed. Follow primary care physician in 3 to [address] Hernandez in 2 weeks. Work excuse 1 week from 05/21/21 till 05/27/21 May return to work on 05/28/2021. Check with your primary care physician if you need more days off work excuse. Follow up with: THALIA BROWN MD [Primary Care Provider] - 3-5 Days ALEKSANDRA HERNANDEZ DO [Staff Physician] - 14 Days Forms: Work/School Release Form Prescriptions: Fluconazole [Diflucan TAB] 150 mg PO QDAY 1 Days #1 tablet HYDROcodone/APAP 5-325 [Berne 5/325] 1 each PO Q6HR PRN #15 tablet PRN Reason: Pain , Severe (7-10)
[2021-05-20] MEDS ORDERED: LIDOCAINE (1%) 10 MG/1 ML VIAL 20 ML MDV INFILTRATI ONE (11:31)
[2021-05-20] MEDS ORDERED: SODIUM CHLORIDE 0.9% IRR 1,500 ML BOTTLE IR ONE (11:31)
[2021-05-20] MEDS ORDERED: NEOSTIGMINE 10MG/10 ML INJ MDV ONE (11:36)
[2021-05-20] MEDS ORDERED: GLYCOPYRROLATE 0.4 MG/2 ML INJ ONE (11:36)
--- NOTE | 2021-05-20 11:51 | Operative Report ---
Operative Report Operative Report: Date of operation: 05/20/2021 Preoperative diagnosis: Gallstone pancreatitis, choledocholithiasis postOperative diagnoses: Same as above Procedure performed: Laparoscopic cholecystectomy Surgeon: Nicole Solano DO Tim[place] Hewer surgeon: MD Agus Anesthesia: Gen. endotracheal anesthesia, local Findings: Gallbladder with stones and adhesions to omentum and colon Specimen: Gallbladder Estimated blood loss: 5cc Complications: None Disposition: Stable to PACU HPI an indication: 30-year-old female who presented to the ER with upper abdominal pain for several days. Patient was found to have elevated LFTs, bilirubin, lipase. Work-up included a CT scan of the abdomen and pelvis, ultrasound of the abdomen, MRCP. This revealed gallstones and choledocholithiasis. Patient underwent an ERCP with sweeping of the common bile duct. Her LFTs, bilirubin, lipase improved. It was recommended that she undergo cholecystectomy. All risks, benefits, alternatives to surgery were discussed in detail and questions answered. Consent was obtained for laparoscopic, possible open cholecystectomy, possible cholangiogram. Procedure in detail: The patient was identified in hospital room and taken back to the operating room, placed on the operating room table in supine position. After anesthesia was induced, the abdomen was prepped and draped in usual sterile fashion and timeout was performed. Local anesthetic was infiltrated into all of the skin incision sites. A supraumbilical incision was made through which a Veress needle was inserted. The Veress needle positioning was confirmed using the saline drop test and the abdomen insufflated to 15 mmHg without incident. The Veress needle was then removed and a 5 mm Optiview trocar placed through this incision. The abdomen was inspected and there was no underlying injury to any of the abdominal structures. An additional 12 mm subxyphoid port, 5 mm right upper quadrant, and 5 mm right lateral abdominal ports were placed under direct visualization. The patient was then placed into reverse Trendelberg and tilted to the left. The gallbladder was grasped and retracted cephalad. There were adhesions from the gallbladder to the omentum and colon. These adhesions were taken down with meticulously using a combination of blunt dissection and electrocautery. The cystic duct and artery were then carefully skeletonized. The medial and lateral peritoneal attachments to the gallbladder were dissected using a combination of blunt dissection with the [place] and hook electrocautery. The cystic duct and artery were the only 2 structures seen entering the gallbladder and the critical view was successfully obtained. 3 clips were placed on the proximal aspect of the cystic duct and 1 distally and this was transected in between the clips using EndoShears. 1 clip was placed on the proximal aspect of the cystic artery and the artery ligated distal to the clip using electrocautery. The gallbladder was dissected from the liver bed using hook electrocautery. The gallbladder was placed into a Endo Catch bag and removed from the abdomen via the 12mm port. The gallbladder fossa was then inspected and there was no identifiable bleeding or bile leakage. Hemostasis was ensured. The clips on the cystic duct and artery were visualized and intact. The patient was then placed into neutral position. The 12 mm port fascia was closed with interrupted 0 Vicryl suture using the Hasmukh Villagomez device. The remaining ports were removed under direct visualization. Skin incisions were closed with 4-0 Monocryl subcuticular stitches and skin glue. All skin incisions were once again infiltrated with local anesthetic. At the end case all sponge, instrument, sharp counts were correct 2. The patient was awoken from anesthesia, extubated, and taken to PACU in stable condition.
[2021-05-20] MEDS ORDERED: HYDROcodone/ACETAMINOPHEN 5-325 MG TAB PO PRN (11:52)
[2021-05-20] MEDS ORDERED: ONDANSETRON 4 MG/2 ML INJ IV PRN (12:02)
[2021-05-20] MEDS ORDERED: HYDROmorphone 1 MG/1 ML INJ IV PRN ×2 (12:02)
[2021-05-20 12:46] VITALS: BP 131/61
== END 2021-05-20 01:40 | disposition home or self-care (01) | DRG 417 ==
LOC: ED 11:31 → 3A 18:00
PROVIDERS: ADMIT Internal Medicine; ATTEND Internal Medicine
PROC: 0F798ZZ Dilation of Common Bile Duct, Via Natural or Artificial Opening Endoscopic (ICD-10-PCS; 2021-05-18)
PROC: 0FT44ZZ Resection of Gallbladder, Percutaneous Endoscopic Approach (ICD-10-PCS; principal; 2021-05-20)
DX: K80.50 Calculus of bile duct without cholangitis or cholecystitis without obstruction (principal); K85.10 Biliary acute pancreatitis without necrosis or infection; K21.9 Gastro-esophageal reflux disease without esophagitis
CPT/HCPCS: 36415; 74177; 74181; 74330; 76705; 80053; 81001; 83690; 84703; 85025; 88304; G0378; J1815; J3490; J7120; Q0162; C1726; J1170; J1200; J1610; J1885; J2250; J2270; J2405; J2543; J2704; J2710; J2765; J3010; J7030; J7042; Q9967